=== PATIENT | female | born 1990 | race Caucasian/White ===

== ENCOUNTER 2019-05-08 03:13 | Emergency (ER) | payer SELFPAY ==
[2019-05-08] VITALS (32 sets, daily range): BP systolic 127–157; BP diastolic 54–120; PULSE 55–124; RESP 11–24; TEMP 37.1; O2SAT 91–100; BMI 25.7
--- NOTE | 2019-05-08 03:26 | ED_ITS ---
Entered by Sangeetha Del Valle, acting as scribe for Gaviota Rice HPI - Abdominal Pain General: Chief Complaint: Back Pain/Injury Stated Complaint: POSS KIDNEY INFECTION Time Seen by Provider: 05/08/19 03:22 Source: patient Mode of arrival: ambulatory History of Present Illness: HPI narrative: 28 y/o female presents to the ED with complaint of right sided kidney pain. She reports having blood in her urine last week, but no pain. She was awakened abruptly this AM, with severe pain. Pt states she has a hx of kidney stones and this pain feels exactly like past episodes. MD elicited complaint: flank pain (Right) Pertinent past history: kidney stones Onset (ago): hour(s) Pain Consistency: constant Location: R flank Severity: severe Pain scale (0-10): 10 Quality: stabbing Exacerbating factors: movement Relieving factors: nothing Associated Symptoms: Reports other (see HPI); Denies chills, fever(s) and syncope Review of Systems Const: Denies: fever, chills, body aches, fatigue, malaise or diaphoresis Eyes: Denies: change in vision or blurry vision ENMT: Denies: throat pain, painful swallowing, hoarseness, ear pain, ear discharge, Change in hearing or nasal discharge Card: Denies: chest pain, palpitations, irregular heart rhythm, syncope, pre- syncope, shortness of breath on exertion or shortness of breath when lying down Resp: Denies: shortness of breath, productive cough, non-productive cough, wheezing, coughing up blood or chest congestion GI: Reports: other (see HPI) : Reports: other (See HPI) Musc: Denies: neck pain, extremity pain, extremity swelling, joint pain, joint swelling, joint warmth or joint stiffness Skin/Breast: Denies: rash, skin tenderness or yellow skin Neuro: Denies: headache, numbness in extremities, weakness in extremities, changes in sensation, lack of coordination, difficulty walking, dizziness, vertigo or confusion Endo: Denies: excessive thirst, tired all the time, cold intolerance, excessive sweating, flushing or hot flashes Thanh/Lymph: Denies: easy bruising, easy bleeding, petechiae or enlarged lymph nodes All/Imm: Denies: hives, throat swelling, tongue swelling, facial swelling or acute wheezing PFSH ED PFSH: Statuses (acute, chronic, etc) shown below reflect problem list status as previously entered and may not be historically accurate Medical History (Updated 05/08/19 @ 06:07 by Gaviota Rice) Kidney stones (Acute) Social History Smoking and tobacco status: current every day smoker Physical Exam Const: COMMON NORMALS: oriented x3, healthy appearing and well nourished EXAM LIMITATIONS: no altered mental status GENERAL APPEARANCE: cooperative, well kempt and well developed ORIENTATION/CONSCIOUSNESS: Yes awake HENMT: COMMON NORMALS: normocephalic, head/scalp atraumatic, hearing grossly normal bilaterally, external ears normal, EAC's normal, external nose normal and moist oral mucous membranes HEAD & SCALP: normal to inspection, normocephalic and atraumatic FACE & SINUS: normal facial exam and face symmetric NOSE: external nose normal and nares normal EXTERNAL EAR: Yes external ears normal EXTERNAL AUDITORY CANAL: EAC's normal MOUTH: oral and palatal mucosa normal and tongue normal Eye: COMMON NORMALS: PERRL, EOMs intact bilaterally, conjunctivae normal and no scleral icterus GENERAL EYE: normal appearance of both eyes and normal light reflex CONJUNCTIVA: Yes conjunctivae normal SCLERA: sclerae normal CORNEA: Yes corneas normal PUPIL: Yes PERRL DIRECT OPHTHALMOSCOPY: Yes normal light reflex Neck/C-Spine: COMMON NORMALS: full ROM, no lymphadenopathy, supple, no meningeal signs and no JVD GENERAL: Yes normal visual inspection and Yes trachea midline CERVICAL SPINE: Yes cervical ROM normal Chest: COMMONS NORMALS: inspection of chest normal and palpation of chest normal Resp: COMMON NORMALS: normal respiratory effort, no retractions, no use of accessory muscles and clear to auscultation bilaterally EFFORT & INSPECTION: Yes able to speak in complete sentences AUSCULTATION: clear to auscultation bilaterally Cardio: COMMON NORMALS: no JVD, regular rate, regular rhythm, S1 normal heart sound, S2 normal heart sound, no gallops, no clicks, no murmurs and no rub JUGULAR VENOUS DISTENTION: no JVD RATE: regular rate RHYTHM: regular rhythm HEART SOUNDS: S1 normal and S2 normal GI: COMMON NORMALS: soft to palpation, non-tender, no hepatosplenomegaly and no masses INSPECTION: Yes normal to inspection PALPATION: Yes soft and Yes no hepatosplenomegaly Extremity: COMMON NORMALS: normal to inspection, full ROM, normal capillary refill, no joint enlargement, no clubbing, cyanosis or edema and no calf tenderness Neuro: COMMON NORMALS: oriented x3, CN's II-XII intact bilaterally, moves all extremities, no focal motor deficits and no sensory deficits noted MENINGEAL SIGNS: Yes no meningeal signs Psych: COMMON NORMALS: mental status grossly normal, cooperative, affect normal, speech normal and activity/motor behavior normal APPEARANCE: Yes well kempt SPEECH: Yes normal speech Skin: COMMON NORMALS: no rashes or lesions noted, skin turgor normal, no jaundice, no petechiae and no mottling GENERAL SKIN EXAM: no rashes or lesions noted and turgor normal Course Vital Signs: Vital signs: Vital Signs Temperature 98.8 F 05/08/19 03:27 Pulse Rate 77 05/08/19 06:30 Respiratory Rate 16 05/08/19 06:30 Blood Pressure 154/78 05/08/19 06:30 Pulse Oximetry 98 05/08/19 06:30 MDM - Abdominal Pain MDM Narrative: Medical decision making narrative: Kyara comes in and has significant kidney stones on her right side. Please see the CT report for details. At this time her pain is controlled and she like to go home. I have reviewed the case in full with Dr. Roy and he is agreeable to see the patient in his clinic in the next 1 to 2 days and she is aware that if her symptoms get worse she may have to have intervention. She has no questions or concerns I see no sign of infection, vomiting or anything that would preclude her from therapy at home. She does agree to return should her symptoms change or worsen. Lab Data: Labs: Lab Results 05/08/19 05/08/19 05/08/19 Range/Units 03:37 03:37 03:55 WBC 10.3 H (4.0-10.0) 10^3/ uL RBC 4.59 (4.1-5.3) 10^6/u L Hgb 10.8 L (11.5-15.3) g/dL Hct 35.7 L (37.0-47.0) % MCV 77.8 L (81-99) fL MCH 23.5 L (28.0-34.0) pg MCHC 30.3 (30.0-36.0) g/dL RDW 15.8 H (12.1-15.1) % Plt Count 461 H (130-400) 10^3/c mm MPV 9.4 (7.4-10.4) fL Neut % (Auto) 56.9 % Lymph % (Auto) 28.5 % [place] % (Auto) 10.1 % Eos % (Auto) 3.4 % Baso % (Auto) 0.8 % Neut # (Auto) 5.8 (1.8-7.7) 10^3/u L Lymph # (Auto) 2.9 (0.8-4.8) 10^3/u L [place] # (Auto) 1.0 H (0.2-0.9) 10^3/u L Eos # (Auto) 0.4 (0.0-0.8) 10^3/u L Baso # (Auto) 0.1 (0.0-0.1) 10^3/u L Nucleated RBC % (a uto) 0 % Nucleated RBCs # 0.0 /100WBC Sodium 137 (136-145) mmol/L Potassium 3.9 (3.5-5.1) mmol/L Chloride 101 (98-107) mmol/L Carbon Dioxide 26 (22-29) mmol/L Anion Gap 13.9 (5-19) BUN 19 (6-20) mg/dL Creatinine 0.8 (0.5-0.9) mg/dL GFR Calculation 84.8 L (90-130) mL/min Glucose 92 (74-109) mg/dL Calcium 9.5 (8.6-10.0) mg/Dl Total Bilirubin 0.3 (0.15-1.2) mg/dL AST 14 (0-32) U/L ALT 10 (0-33) U/L Alkaline Phosphata se 57 (35-105) IU/L Total Protein 7.3 (6.6-8.7) g/dL Albumin 4.3 (3.5-5.2) g/dL Globulin 3.0 (1.3-4.6) g/dL HCG, Qual Negative (Negative) Urine Color (Yellow) Urine Appearance (CLEAR) Urine pH (5-7) Ur Specific Gravit y (1.005-1.030) Urine Protein (Negative) Urine Glucose (UA) (Normal) Urine Ketones (Negative) Urine Occult Blood (Negative) Urine Nitrate (Negative) Urine Bilirubin (NEGATIVE) Urine Urobilinogen (Negative) mg/dL Ur Leukocyte Steffany ase (Negative) Urine RBC (0-2) /hpf Urine WBC (0-5) /hpf Ur Squamous Epith Cells (0-5) Urine Bacteria (NONE) 05/08/19 Range/Units 03:55 WBC (4.0-10.0) 10^3/ uL RBC (4.1-5.3) 10^6/u L Hgb (11.5-15.3) g/dL Hct (37.0-47.0) % MCV (81-99) fL MCH (28.0-34.0) pg MCHC (30.0-36.0) g/dL RDW (12.1-15.1) % Plt Count (130-400) 10^3/c mm MPV (7.4-10.4) fL Neut % (Auto) % Lymph % (Auto) % [place] % (Auto) % Eos % (Auto) % Baso % (Auto) % Neut # (Auto) (1.8-7.7) 10^3/u L Lymph # (Auto) (0.8-4.8) 10^3/u L [place] # (Auto) (0.2-0.9) 10^3/u L Eos # (Auto) (0.0-0.8) 10^3/u L Baso # (Auto) (0.0-0.1) 10^3/u L Nucleated RBC % (a uto) % Nucleated RBCs # /100WBC Sodium (136-145) mmol/L Potassium (3.5-5.1) mmol/L Chloride (98-107) mmol/L Carbon Dioxide (22-29) mmol/L Anion Gap (5-19) BUN (6-20) mg/dL Creatinine (0.5-0.9) mg/dL GFR Calculation (90-130) mL/min Glucose (74-109) mg/dL Calcium (8.6-10.0) mg/Dl Total Bilirubin (0.15-1.2) mg/dL AST (0-32) U/L ALT (0-33) U/L Alkaline Phosphata se (35-105) IU/L Total Protein (6.6-8.7) g/dL Albumin (3.5-5.2) g/dL Globulin (1.3-4.6) g/dL HCG, Qual (Negative) Urine Color Yellow (Yellow) Urine Appearance Clear (CLEAR) Urine pH 5 (5-7) Ur Specific Gravit y 1.020 (1.005-1.030) Urine Protein Neg (Negative) Urine Glucose (UA) Norm (Normal) Urine Ketones Negative (Negative) Urine Occult Blood 3+ H (Negative) Urine Nitrate Negative (Negative) Urine Bilirubin Neg (NEGATIVE) Urine Urobilinogen Norm (Negative) mg/dL Ur Leukocyte Steffany ase Negative (Negative) Urine RBC >100 H (0-2) /hpf Urine WBC 0-4 H (0-5) /hpf Ur Squamous Epith Cells 0-4 H (0-5) Urine Bacteria 1+ H (NONE) Discharge Plan Discharge Patient Disposition: Home, Self-Care Clinical Impression: Kidney stones Condition: Stable Prescriptions: New Percocet 5-325 mg tablet 1 tab PO Q8H Qty: 20 RF: 0 Zofran 4 mg tablet 4 mg PO DAILY PRN (Reason: nausea and vomiting) 5 Days RF: 0 Cipro 500 mg tablet 500 mg PO BID Qty: 20 RF: 0 Flomax 0.4 mg capsule 0.4 mg PO DAILY Qty: 14 RF: 0 Discharge Orders: Discharge Order (Routine); Ordered 05/08/19 Ordered By: Gaviota Rice Referrals: Ethan Roy MD [Physician] - Discharge Diet: Advance as tolerated Discharge Activity: Resume usual activity Patient Instructions: Kidney Stones (ED) Activity Restrictions/Additional Instructions: Please return to the ER immediately for any of the signs or symptoms listed on your discharge instruction sheets, worsening/changing of your symptoms, you are not getting better as quickly as expected, or for ANY other cause or concerns. Discharge Date/Time: 05/08/19 06:31 Coding Level of Care Code ED Acting Section Chief for Chg Fwd Exam Problem Focused The documentation recorded by the Eligio palmer Ashley, accurately reflects the service I personally performed and the decisions made by Krystal torrez Eli N May 08, 2019 03:13
--- NOTE | 2019-05-08 03:28 | CTR_ITS ---
PROCEDURE INFORMATION: Exam: CT Abdomen And Pelvis Without Contrast Exam date and time: 05/08/2019 3:29 AM Age: 28 years old Clinical indication: Other: Gross hematuria; Abdominal pain; Flank; Right; Additional info: Flank/abdominal pain TECHNIQUE: Imaging protocol: Computed tomography of the abdomen and pelvis without contrast. Total DLP: 938.49 mGy-cm Radiation optimization: All CT scans at this facility use at least one of these dose optimization techniques: automated exposure control; mA and/or kV adjustment per patient size (includes targeted exams where dose is matched to clinical indication); or iterative reconstruction. COMPARISON: CT abdomen pelvis w con* [id number] 10/04/2014 11:30 AM FINDINGS: Lungs: The lung bases are clear. Liver: Unremarkable. Gallbladder and bile ducts: No definite gallbladder abnormality by CT. No biliary tree dilation. Pancreas: Unremarkable. Spleen: Unremarkable. Adrenals: Unremarkable. Kidneys and ureters: 2 or 3 right intrarenal calculi. Moderate to severe right hydronephrosis and hydroureter. There appear to be three adjacent 4-5 mm distal right ureteral calculi, about 1-2 cm from the UVJ. There is an additional 5 mm distal right ureteral calculus about 3 cm more proximal. Several small left intrarenal calculi. The left kidney otherwise appears essentially unremarkable. Stomach and bowel: There are no CT findings to strongly suggest diverticulitis. Appendix: The appendix is visualized and appears normal. Intraperitoneal space: No free air, ascites, or bowel distention. Vasculature: No evidence for abdominal aortic aneurysm. Lymph nodes: No retroperitoneal adenopathy. Bladder: Possibly some mild diffuse urinary bladder wall thickening. While nonspecific, this could indicate evidence for cystitis. Please correlate clinically. Reproductive: Small amount of cul-de-sac fluid. No definite abnormal ovarian/adnexal cyst or mass by CT. Bones/joints: No significant acute finding. Soft tissues: No significant acute finding. CT/CT kidney stone [id number] IMPRESSION: 1. Multiple distal right ureteral calculi, see above details. 2. Moderate to severe right hydronephrosis and hydroureter. 3. Bilateral intrarenal calculi. 4. Possible mild urinary bladder wall thickening, see above. 5. Normal appendix. 6. Other findings discussed above. Radiation Dose CTDIVOL = (mGy): DLP = 938.49 (mGy-cm)
[2019-05-08] MEDS: ondansetron 2 mg/ML SDV 2 mL 4 MG IVP (03:45)
[2019-05-08] MEDS: HYDROmorphone 1 mg/mL INJ 1 mL IVP (03:45)
[2019-05-08] MEDS: sodium chloride 0.9% 1,000 ML 100 ML IV (03:45)
[2019-05-08 03:49] LABS: Basophils # 0.1 10^3/uL (0.0-0.1); Basophils % 0.8 %; Eosinophils # 0.4 10^3/uL (0.0-0.8); Eosinophils % 3.4 %; Hematocrit 35.7 % (37.0-47.0); Hemoglobin 10.8 g/dL (11.5-15.3); Lymphocytes # 2.9 10^3/uL (0.8-4.8); Lymphocytes % 28.5 %; Mean Corpuscular HGB Conc 30.3 g/dL (30.0-36.0); Mean Corpuscular Hemoglobin 23.5 pg (28.0-34.0); Mean Corpuscular Volume 77.8 fL (81-99); Mean Platelet Volume 9.4 fL (7.4-10.4); Monocytes % 10.1 %; Neutrophils # 5.8 10^3/uL (1.8-7.7); Neutrophils % 56.9 %; Nucleated Red Blood Cells % 0 %; Platelet Count 461 10^3/cmm (130-400); Red Blood Count 4.59 10^6/uL (4.1-5.3); Red Cell Distribution Width 15.8 % (12.1-15.1); White Blood Count 10.3 10^3/uL (4.0-10.0)
[2019-05-08 03:58] LABS: Alanine Aminotransferase 10 U/L (0-33); Albumin Level 4.3 g/dL (3.5-5.2); Alkaline Phosphatase 57 IU/L (35-105); Anion Gap 13.9 (5-19); Aspartate Amino Transferase 14 U/L (0-32); Blood Urea Nitrogen 19 mg/dL (6-20); Calcium 9.5 mg/Dl (8.6-10.0); Carbon Dioxide 26 mmol/L (22-29); Chloride 101 mmol/L (98-107); Glomerular Filtration Rate 84.8 mL/min (90-130); Glucose 92 mg/dL (74-109); Potassium 3.9 mmol/L (3.5-5.1); Sodium 137 mmol/L (136-145); Total Bilirubin 0.3 mg/dL (0.15-1.2); Total Protein 7.3 g/dL (6.6-8.7)
[2019-05-08 04:14] LABS: HCG Qualitative Urine. Negative (Negative)
[2019-05-08 05:12] LABS: Bilirubin Urine Neg (NEGATIVE); Blood Urine 3+ (Negative); Glucose Urine UA Norm (Normal); Ketones Urine Negative (Negative); Leukocyte Esterase Urine Negative (Negative); Nitrate Urine Negative (Negative); Protein Urine Neg (Negative); Urine Appearance Clear (CLEAR); Urine Color Yellow (Yellow); Urobilinogen Urine Norm (Negative); pH Urine 5 (5-7)
[2019-05-08 05:13] LABS: Add Urine Culture? Yes; Bacteria Urine 1+; RBC Urine >100 /hpf (0-2); Squamous Epithelial Cell Urine 0-4 (0-5); WBC Urine 0-4 /hpf (0-5)
[2019-05-08] MEDS: ketorolac 30 mg/mL INJ 15 MG IVP (06:04)
--- NOTE | 2019-05-08 11:55 | DCPLANNER ---
manager safe had message to schedule a follow up appointment for patient with Dr. Roy. manager safe called the office of Dr. Roy, spoke with Monserrat, gave clinic patients information, was told that patients information would be printed and reviewed. Clinic will call patient with appointment information. manager safe will call for appointment information.
--- NOTE | 2019-05-14 15:08 | DCPLANNER ---
Paulina from Dr. Hua office called rn case manager hospice, stating that a follow up appointment had been scheduled for patient, but is cancelled. Clinic has not been able to reach patient to schedule appointment.
== END 2019-05-08 06:31 | disposition home or self-care (01) ==
PROVIDERS: Emergency Provider Emergency Medicine
DX: N20.0 Calculus of kidney (principal); F17.210 Nicotine dependence, cigarettes, uncomplicated; Z87.442 Personal history of urinary calculi
CPT/HCPCS: 36415; 74176; 80053; 81001; 81025; 85025; 87077; 87086; 87186; 96360; 96374; 99283; J1170; J1885; J2405; J7030

== ENCOUNTER 2019-08-06 14:07 | Emergency (ER) | payer MEDICAID, SELFPAY ==
[2019-08-06] VITALS (8 sets, daily range): BP systolic 111–146; BP diastolic 52–90; PULSE 59–96; RESP 16–20; TEMP 36.7; O2SAT 98–100; BMI 25.0
--- NOTE | 2019-08-06 14:20 | ED_ITS ---
HPI - Back Pain/Injury General: Chief Complaint: Back Pain/Injury Stated Complaint: back and side pain Time Seen by Provider: 08/06/19 14:18 History of Present Illness: HPI Narrative: 28-year-old female presents to the emergency room with complaint of right flank pain that began this morning. She first got count of a pressure sensation and then as the morning progressed progressed it actually worsened significantly now she has severe pain radiating down from the right flank into the groin. She has had renal stones in the past not followed up with Dr. Roy but it is been several years she had passed some on her own she is been having cramping and nausea with these but no vomiting she is not noted any hematuria she recently started on a new control has not had a period since starting and she is unsure if she might not be . Associated symptoms: Reports urinary urgency; Deny abdominal pain, chills, dysuria, fatigue, fever(s), nausea or vomiting Review of Systems Const: Denies: fever, chills, body aches, change in appetite, fatigue or malaise ENMT: Denies: throat pain, ear pain, nasal discharge or nasal congestion Card: Denies: chest pain, edema, shortness of breath on exertion or shortness of breath when lying down Resp: Denies: shortness of breath, productive cough or non-productive cough GI: Denies: abdominal pain, nausea, vomiting, vomiting blood, coffee grounds in vomit, diarrhea, constipation, bloating, blood in stool or black tarry stool : Reports: flank pain, difficulty urinating, urinary frequency and urinary urgency; Denies: painful urination Skin/Breast: Denies: rash or itching [facility] ED PFSH: Medical History (Updated 08/06/19 @ 17:02 by Ethan Roy MD) Kidney stones Obstructive pyelonephritis Surgical History (Updated 08/06/19 @ 17:02 by Ethan Roy MD) History of ureter stent Family History (Updated 08/06/19 @ 17:04 by Ethan Roy MD) Other Cancer Social History (Updated 08/06/19 @ 17:03 by Ethan Roy MD) Smoking and tobacco status: former smoker Female Reproductive History: Date of last menstrual period: 07/09/19 Physical Exam Const: COMMON NORMALS: no apparent distress GENERAL APPEARANCE: cooperative and comfortable ORIENTATION/CONSCIOUSNESS: Yes awake, Yes oriented to person, Yes oriented to place and Yes oriented to time HENMT: COMMON NORMALS: normocephalic, head/scalp atraumatic, hearing grossly normal bilaterally, external ears normal, EAC's normal, TM's normal bilaterally, nasal mucous membranes and turbinates normal, moist oral mucous membranes and oropharynx normal HEAD & SCALP: normocephalic and atraumatic NOSE: nasal mucous membranes and turbinates normal EXTERNAL EAR: Yes external ears normal EXTERNAL AUDITORY CANAL: EAC's normal TYMPANIC MEMBRANE: TM's normal bilaterally Eye: COMMON NORMALS: PERRL, EOMs intact bilaterally, conjunctivae normal and no scleral icterus CONJUNCTIVA: Yes conjunctivae normal PUPIL: Yes PERRL Neck/C-Spine: COMMON NORMALS: full ROM, no lymphadenopathy, supple and no JVD Lymph: LYMPHATIC: no lymphadenopathy noted and no lymphedema noted Resp: COMMON NORMALS: normal respiratory effort, no retractions, no use of accessory muscles and clear to auscultation bilaterally AUSCULTATION: clear to auscultation bilaterally Cardio: COMMON NORMALS: no JVD, regular rate, regular rhythm and no murmurs RATE: regular rate RHYTHM: regular rhythm GI: COMMON NORMALS: soft to palpation and no hepatosplenomegaly AUSCULTATION: Yes normoactive bowel sounds PALPATION: Yes soft, No tender, No guarding and Yes no hepatosplenomegaly : BLADDER/KIDNEY EXAM: Yes CVA tenderness Back/Pelvis: GENERAL BACK: Yes CVA tenderness CVA tenderness: right Extremity: COMMON NORMALS: normal to inspection, normal capillary refill, no clubbing, cyanosis or edema, no calf tenderness and no pedal edema Neuro: SENSORIUM/ORIENTATION: Yes oriented to person, Yes oriented to place and Yes oriented to time Skin: COMMON NORMALS: no rashes or lesions noted GENERAL SKIN EXAM: no rash es or lesions noted Course Vital Signs: Vital signs: Vital Signs Temperature 98.0 F 08/06/19 14:12 Pulse Rate 59 L 08/06/19 16:29 Respiratory Rate 17 08/06/19 17:04 Blood Pressure 114/79 08/06/19 16:29 Pulse Oximetry 98 08/06/19 17:04 MDM - Back Pain/Injury MDM Narrative: Medical decision making narrative: Discussed Dr. Roy he ca me and seen the patient in the emergency room. Patient had talked about having seen Dr. Roy in the past and there was a CT done from April but evidently she had not seen Dr. Roy for some time. She did pass 1 of the 3 stones with [place] tube in place. Given the length of time that these have been in place she will likely need assistance with getting the past Dr. Roy seen her and wanted to do a stent on her tomorrow she will go home for tonight with pain medications and Flomax she is to be n.p.o. after midnight and to be at outpatient surgery at 6 AM Lab Data: Labs: Lab Results 08/06/19 08/06/19 08/06/19 Range/Units 14:21 14:21 14:21 WBC 10.2 H (4.0-10.0) 10^3/ uL RBC 4.41 (4.1-5.3) 10^6/u L Hgb 10.2 L (11.5-15.3) g/dL Hct 35.4 L (37.0-47.0) % MCV 80.3 L (81-99) fL MCH 23.1 L (28.0-34.0) pg MCHC 28.8 L (30.0-36.0) g/dL RDW 15.0 (12.1-15.1) % Plt Count 483 H (130-400) 10^3/c mm MPV 9.6 (7.4-10.4) fL Neut % (Auto) 61.2 % Lymph % (Auto) 26.3 % [place] % (Auto) 8.8 % Eos % (Auto) 2.5 % Baso % (Auto) 0.9 % Neut # (Auto) 6.2 (1.8-7.7) 10^3/u L Lymph # (Auto) 2.7 (0.8-4.8) 10^3/u L [place] # (Auto) 0.9 (0.2-0.9) 10^3/u L Eos # (Auto) 0.3 (0.0-0.8) 10^3/u L Baso # (Auto) 0.1 (0.0-0.1) 10^3/u L Nucleated RBC % (a uto) 0 % Nucleated RBCs # 0.0 /100WBC Sodium 140 (136-145) mmol/L Potassium 3.6 (3.5-5.1) mmol/L Chloride 104 (98-107) mmol/L Carbon Dioxide 25 (22-29) mmol/L Anion Gap 14.6 (5-19) BUN 11 (6-20) mg/dL Creatinine 0.8 (0.5-0.9) mg/dL GFR Calculation 84.8 L (90-130) mL/min Glucose 90 (65-115) mg/dL Calculated Osmolal ity 286 (285-295) mOsm/k g Calcium 9.0 (8.5-10.5) mg/dL HCG, Qual Negative (Negative) Urine Color (Yellow) Urine Appearance (CLEAR) Urine pH (5-7) Ur Specific Gravit y (1.005-1.030) Urine Protein (Negative) Urine Glucose (UA) (Normal) Urine Ketones (Negative) Urine Blood (Negative) Urine Nitrate (Negative) Urine Bilirubin (NEGATIVE) Prot Sulfosalicyli c Acd (Negative) Urine Urobilinogen (Negative) mg/dL Ur Leukocyte Steffany ase (Negative) 08/06/19 Range/Units 14:21 WBC (4.0-10.0) 10^3/ uL RBC (4.1-5.3) 10^6/u L Hgb (11.5-15.3) g/dL Hct (37.0-47.0) % MCV (81-99) fL MCH (28.0-34.0) pg MCHC (30.0-36.0) g/dL RDW (12.1-15.1) % Plt Count (130-400) 10^3/c mm MPV (7.4-10.4) fL Neut % (Auto) % Lymph % (Auto) % [place] % (Auto) % Eos % (Auto) % Baso % (Auto) % Neut # (Auto) (1.8-7.7) 10^3/u L Lymph # (Auto) (0.8-4.8) 10^3/u L [place] # (Auto) (0.2-0.9) 10^3/u L Eos # (Auto) (0.0-0.8) 10^3/u L Baso # (Auto) (0.0-0.1) 10^3/u L Nucleated RBC % (a uto) % Nucleated RBCs # /100WBC Sodium (136-145) mmol/L Potassium (3.5-5.1) mmol/L Chloride (98-107) mmol/L Carbon Dioxide (22-29) mmol/L Anion Gap (5-19) BUN (6-20) mg/dL Creatinine (0.5-0.9) mg/dL GFR Calculation (90-130) mL/min Glucose (65-115) mg/dL Calculated Osmolal ity (285-295) mOsm/k g Calcium (8.5-10.5) mg/dL HCG, Qual (Negative) Urine Color Yellow (Yellow) Urine Appearance Hazy A (CLEAR) Urine pH 8 H (5-7) Ur Specific Gravit y 1.005 (1.005-1.030) Urine Protein Neg (Negative) Urine Glucose (UA) Norm (Normal) Urine Ketones Negative (Negative) Urine Blood Neg (Negative) Urine Nitrate Negative (Negative) Urine Bilirubin Neg (NEGATIVE) Prot Sulfosalicyli c Acd Negative (Negative) Urine Urobilinogen Norm (Negative) mg/dL Ur Leukocyte Steffany ase Negative (Negative) Discharge Plan Discharge Patient Disposition: Home, Self-Care Clinical Impression: Kidney stones Condition: Stable Prescriptions: New hydrocodone-acetaminophen 5-325 mg tablet 1 tab PO Q6H PRN (Reason: pain) Qty: 20 RF: 0 Flomax 0.4 mg capsule 0.4 mg PO DAILY Qty: 7 RF: 0 No Action Lutera (28) 0.1-20 mg-mcg Tablet 1 tab PO DAILY RF: 0 Discharge Orders: Discharge Order (Routine); Ordered 08/06/19 Ordered By: Brian Rocha Referrals: Ethan Roy MD [Physician] - (Follow-up for ureteral stones) Discharge Diet: Usual diet Discharge Activity: Increase activity as tolerated Activity Restrictions/Additional Instructions: Follow-up with Dr. Roy tomorrow as planned. N.p.o. after midnight Coding Level of Care Code ED Nursing Education Specialist for Chg Fwd Exam Comprehensive
--- NOTE | 2019-08-06 14:23 | XR_ITS ---
WS: [id number] ABDOMEN KUB CLINICAL INFORMATION: Renal/ureteral calculi. COMPARISON: October 06, [address] May 08, 2019 FINDINGS: A few subcentimeter right renal parenchymal calculi. No visualized left renal parenchymal calculi. Pe lvic phleboliths. No definite visualized ureteral calculi. Normal bowel gas pattern. Mild lumbar curv e. XR/XR KUB portable [id number] Impression: 1. No definite visualized ureteral calculi. Pelvic phleboliths. 2. A few subcentimeter right renal parenchymal calculi.
[2019-08-06] MEDS: morphine 4 mg/mL SDV 1 mL IVP ×2 (14:32→17:04)
[2019-08-06] MEDS: ondansetron 2 mg/ML SDV 2 mL 4 MG IVP (14:32)
[2019-08-06 14:46] LABS: Add Urine Microscopic? NO
[2019-08-06 14:47] LABS: Basophils # 0.1 10^3/uL (0.0-0.1); Basophils % 0.9 %; Eosinophils # 0.3 10^3/uL (0.0-0.8); Eosinophils % 2.5 %; Hematocrit 35.4 % (37.0-47.0); Hemoglobin 10.2 g/dL (11.5-15.3); Lymphocytes # 2.7 10^3/uL (0.8-4.8); Lymphocytes % 26.3 %; Mean Corpuscular HGB Conc 28.8 g/dL (30.0-36.0); Mean Corpuscular Hemoglobin 23.1 pg (28.0-34.0); Mean Corpuscular Volume 80.3 fL (81-99); Mean Platelet Volume 9.6 fL (7.4-10.4); Monocytes # 0.9 10^3/uL (0.2-0.9); Monocytes % 8.8 %; Neutrophils # 6.2 10^3/uL (1.8-7.7); Neutrophils % 61.2 %; Nucleated Red Blood Cells % 0 %; Platelet Count 483 10^3/cmm (130-400); Red Blood Count 4.41 10^6/uL (4.1-5.3); White Blood Count 10.2 10^3/uL (4.0-10.0)
[2019-08-06 14:51] LABS: Urine Appearance Hazy (CLEAR); Urine Color Yellow (Yellow)
[2019-08-06 14:52] LABS: Bilirubin Urine Neg (NEGATIVE); Blood Urine Neg (Negative); Glucose Urine UA Norm (Normal); Ketones Urine Negative (Negative); Leukocyte Esterase Urine Negative (Negative); Nitrate Urine Negative (Negative); Protein Urine Neg (Negative); Specific Gravity, Urine 1.005 (1.005-1.030); Sulfosalicylic Acid Urine Negative (Negative); Urobilinogen Urine Norm (Negative); pH Urine 8 (5-7)
[2019-08-06 15:00] LABS: HCG Qualitative Urine. Negative (Negative)
[2019-08-06 15:18] LABS: Anion Gap 14.6 (5-19); Blood Urea Nitrogen 11 mg/dL (6-20); Carbon Dioxide 25 mmol/L (22-29); Chloride 104 mmol/L (98-107); Glomerular Filtration Rate 84.8 mL/min (90-130); Glucose 90 mg/dL (65-115); Osmolality Calculated 286 mOsm/kg (285-295); Potassium 3.6 mmol/L (3.5-5.1); Sodium 140 mmol/L (136-145)
--- NOTE | 2019-08-06 15:37 | CT_ITS ---
WS: [id number] CT ABDOMEN PELVIS TECHNIQUE: Noncontrast CT of the abdomen and pelvis with coronal and sagittal reformatted images. CLINICAL INFORMATION: R flank pain COMPARISON: CT May 08, 2019 DLP: 974.[address] scans at [facility] use at least one of these dose optimization techniques: automat ed exposure control; mA and/or kV adjustment per patient size (includes targeted exams where dose is matched to clinical indication); or iterative reconstruction. FINDINGS: Moderate right hydronephrosis is unchanged. Moderate right ureterectasis is unchanged. Cluster of adj acent calculi just proximal to the UVJ are unchanged measuring 4 to 5 mm. Previously described more p roximal ureteral calculus no longer visualized. Tiny subcentimeter calyceal tip calculi are unchanged. No hydronephrosis left kidney. Noncontrast lacey er and gallbladder are normal. Noncontrast spleen is normal. Normal GE junction. Normal caliber abdom inal aorta. Sigmoid diverticulosis. Lung bases are well aerated. No other significant interval changes. IMPRESSIO N: 1. Moderate right hydronephrosis with ureterectasis is unchanged from previous. 2. Obstructing cluster of calculi distal right ureter just proximal to the UVJ measuring 3 to 4 mm. 3. Previously described more proximal 5mm ureteral calculus no longer visualized. 4. Bilateral subcentimeter calyceal tip calculi unchanged. 5. Normal appendix. Notified Brian Rocha DO at 08/06/2019 4:06 PM.
--- NOTE | 2019-08-06 15:58 | PC.NURSE ---
Pt returned from radiology
--- NOTE | 2019-08-07 05:50 | SC_ITS ---
WS: [id number] INTRAOPERATIVE TECHNIQUE: 2 Spot fluoroscopic images for intraoperative purposes. FLUOROSCOPY TIME: 83.8 seconds seconds CLINICAL INFORMATION: Right distal ureteral stone, ureteroscopy planned COMPARISON: None. FINDINGS: Partially visualized right double-J ureteral stent
--- NOTE | 2019-08-07 06:31 | W.PM.OPSUD ---
Surgery/Procedure H&P Update DATE OF PROCEDURE: August 07, 2019 DATE H&P PERFORMED: 08/06/19 H&P UPDATE INFORMATION: I have reviewed H&P completed within last 30 days, I have examined patient prior to procedure and No changes to prior documentation PREOP DIAGNOSIS: Refractory right distal ureteral stone PLANNED PROCEDURE: Operation Date: 08/07/19 07:20 Proposed Procedures p Cystoscopy(Not Applicable) - Ethan Roy MD
--- NOTE | 2019-08-07 06:31 | PM.OP ---
Operative Report Date of procedure: August 07, 2019 Pre-op Diagnosis: Refractory right distal ureteral stone Post-op diagnosis: same Procedure Done: 1. Cystoscopy, RIGHT ureteroscopy, laser, stent 2. Right retrograde ureteropyelogram Implants: Right ureteral stent Pathology: Stone fragment Surgeon: Manuela Anesthesia: General Estimated blood loss: Minimal Urine output: Not measured Complications: none Condition: stable Disposition: PACU Brief History: Kyara is a 28-year-old white female who in April of this year was diagnosed with high-grade obstructing right distal ureteral stones but failed to follow-up. She presented back to the emergency department yesterday with recurrent pain and progressive hydronephrosis and no significant progression of the stones. Due to the risk related to her right kidney from chronic obstruction she ultimately agreed to proceed with intervention and endoscopy was selected due to the high likelihood of significant simba-stone ureteral edema. Procedure: After urgent evaluation examination and obtaining of informed consent she was taken to the operating suite on 08/07/2019 where general anesthesia was administered without difficulty after appropriate timeout was performed, SCDs confirmed to be functioning, preoperative antibiotics administered, beta-jamil protocol confirmed. Prepped and draped in the usual sterile fashion in dorsolithotomy position pain careful attention to avoiding pressure points. 21 Citizen [place] cystoscope with 30 degree lens was introduced into the urethral meatus and advanced into the bladder under videoscopy. Bladder was systematically examined showed some intramural edema on the right but no other gross abnormality. No stones. An 8 [place] cone-tipped catheter was intubated into the right ureteral orifice for right retrograde ureteropyelogram demonstrating the following: The very distal aspect of the ureter appeared to be normal. Filling defect consistent with stones was identified in the expected position based on prior imaging. Flexible tip guidewire was advanced up the right ureter. The distal ureter was then dilated with a 15 [place] 4 cm balloon. The wire was secured to the drapes as a safety wire. Offset semirigid ureteroscope was then advanced up the right ureter next to the safety wire and the cluster of stones were identified with some of the more distal aspect impacted. They were then fragmented with a 375 ?m holmium laser fiber and the fragments removed without difficulty with combination of grasping forceps and parachute basket. Final inspection revealed no residual fragments and the ureter showed significant edema at the level of the impaction and for that reason it was decided to leave a stent in. A 7 [place] by 26 cm double-pigtail stent was advanced over the guidewire through the cystoscope into appropriate position as confirmed via fluoroscopy and cystoscopy. No string. Tolerated procedure well without complications and was awakened in the operating room and returned to the recovery room in stable condition. PLANS: 1. Maintain stent until removed in clinic in 2 weeks to allow adequate healing of the impaction site.
--- NOTE | 2019-08-07 16:09 | DCPLANNER ---
Patient followed up with Dr. Roy on 08.07.19 and has a follow up appointment scheduled with clinic.
== END 2019-08-06 17:43 | disposition home or self-care (01) ==
PROVIDERS: Emergency Medicine; Emergency Provider Family Medicine
DX: N20.0 Calculus of kidney (principal); Z87.442 Personal history of urinary calculi; Z87.891 Personal history of nicotine dependence
CPT/HCPCS: 12345; 74018; 74176; 80048; 81003; 81025; 85025; 96374; 96375; 96376; 99283; 99284; J2270; J2405

== ENCOUNTER 2019-08-07 05:48 | Day surgery (SDC) | payer MEDICAID, SELFPAY ==
--- NOTE | 2019-08-07 | SCC_ITS ---
Procedure Done: 1. Cystoscopy, RIGHT ureteroscopy, laser, stent 2. Right retrograde ureteropyelogram 83.8 seconds of fluoroscopic guidance, for a cumulative dose of 13.90 mGy, was provided to Dr. Roy by the radiology department. C-arm images of the abdomen were saved for the patient's permanent record. [facility]
--- NOTE | 2019-08-07 | SC_ITS ---
NOTE: Report was unsigned for reason: Order was edited. Original Signature date and time was: 08/07/19 @ 0831 INTRAOPERATIVE TECHNIQUE: 2 Spot fluoroscopic images for intraoperative purposes. FLUOROSCOPY TIME: 83.8 seconds seconds CLINICAL INFORMATION: Right distal ureteral stone, ureteroscopy planned COMPARISON: None. FINDINGS: Partially visualized right double-J ureteral stent Dictated By: Ryan Castillo MD Signed By: Signed Date/Time: DD/ 0831 [email or web address]
[2019-08-07 06:00] VITALS: BMI 25.0
--- NOTE | 2019-08-07 06:29 | ANES.PREANE2 ---
Pre-Anesthetic Assessment Pre-Anesthetic Assessment: Height/Weight: Height 1.65 m Weight 68.039 kg Preop Diagnosis: Refractory right distal ureteral stone Proposed Procedure: Operation Date: 08/07/19 07:00 Proposed Procedures p Cystoscopy(Right) - Ethan Roy MD Last intake: Intake Last Liquid Date 08/06/19 Last Liquid Time 20:30 Last Solid Date 08/06/19 Last Solid Time 20:30 Social: Social History: Tobacco (quit) and No alcohol Exam: Pre-Anes Outpt Exam: alert, oriented x 3, clear to auscultation bilaterally and regular rate & rhythm Airway: Submandibular: WNL Cervical ROM: WNL MP: 1 Dentition: False (Upper and lower) History/ROS: No significant history except as noted Pulmonary: Pulmonary: None reported CV/HEM: CV/HEM: None reported : Comments: stones Hepatic: Hepatic: None reported GI: GI: None reported Metabolic: Metabolic: None reported Musc/skel: Musc/skel: None reported Neuropsych: Neuropsych: None reported Anesthetic Plan: ASA status: 2 Anesthesia: Anesthesia Evaluation and General Risk of > 500 ml blood loss (7ml/kg in children): No PFSH Anesthesia PFSH: Medical History Kidney stones Obstructive pyelonephritis Surgical History History of ureter stent Family History Other Cancer Social History Smoking and tobacco status: former smoker Female Reproductive History: Date of last menstrual period: 07/09/19 Data Anesthesia Cardiac Studies: No Data to Display
[2019-08-07] MEDS: sodium chloride 0.9% 1,000 ML 30 ML IV (06:40)
[2019-08-07 06:41] VITALS: BP 128/72; PULSE 65; RESP 16; TEMP 36.4; O2SAT 100
[2019-08-07] MEDS: levofloxacin-dextrose 5 % 500 MG/100 ML PREMIX 100 MG IV (06:48)
[2019-08-07] MEDS: iohexol 300 mg/mL 50 mL Btl (OR ONLY) XX (07:17)
--- NOTE | 2019-08-07 07:54 | P.OP_ITS ---
Operative Report Date of procedure: August 07, 2019 Procedure: Operative Note Signed Patient: Kyara Pike [facility]#: [id number] : 1990Acct#:[id number] Age/Sex: 28 / FADM Date: 08/06/19 Loc: [facility] Clinic/Bed: Encounter Date: 08/07/[address]: Report Number: [id number] Operative Report Date of procedure: August 07, 2019 Pre-op Diagnosis: Refractory right distal ureteral stone Post-op diagnosis: same Procedure Done: 1. Cystoscopy, RIGHT ureteroscopy, laser, stent 2. Right retrograde ureteropyelogram Implants: Right ureteral stent Pathology: Stone fragment Surgeon: Manuela Anesthesia: General Estimated blood loss: Minimal Urine output: Not measured Complications: none Condition: stable Disposition: PACU Brief History: Kyara is a 28-year-old white female who in April of this year was diagnosed with high-grade obstructing right distal ureteral stones but failed to follow-up. She presented back to the emergency department yesterday with recurrent pain and progressive hydronephrosis and no significant progression of the stones. Due to the risk related to her right kidney from chronic obstruction she ultimately agreed to proceed with intervention and endoscopy was selected due to the high likelihood of significant simba-stone ureteral edema. Procedure: After urgent evaluation examination and obtaining of informed consent she was taken to the operating suite on 08/07/2019 where general anesthesia was administered without difficulty after appropriate timeout was performed, SCDs confirmed to be functioning, preoperative antibiotics administered, beta-jamil protocol confirmed. Prepped and draped in the usual sterile fashion in dorsolithotomy position pain careful attention to avoiding pressure points. 21 [place] cystoscope with 30 degree lens was introduced into the urethral meatus and advanced into the bladder under videoscopy. Bladder was systematically examined showed some intramural edema on the right but no other gross abnormality. No stones. An 8 [place] cone-tipped catheter was intubated into the right ureteral orifice for right retrograde ureteropyelogram demonstrating the following: The very distal aspect of the ureter appeared to be normal. Filling defect consistent with stones was identified in the expected position based on prior imaging. Flexible tip guidewire was advanced up the right ureter. The distal ureter was then dilated with a 15 [place] 4 cm balloon. The wire was secured to the drapes as a safety wire. Offset semirigid ureteroscope was then advanced up the right ureter next to the safety wire and the cluster of stones were identified with some of the more distal aspect impacted. They were then fragmented with a 375 ?m holmium laser fiber and the fragments removed without difficulty with combination of grasping forceps and parachute basket. Final inspection revealed no residual fragments and the ureter showed significant edema at the level of the impaction and for that reason it was decided to leave a stent in. A 7 [place] by 26 cm double-pigtail stent was advanced over the guidewire through the cystoscope into appropriate position as confirmed via fluoroscopy and cystoscopy. No string. Tolerated procedure well without complications and was awakened in the operating room and returned to the recovery room in stable condition. PLANS: 1. Maintain stent until removed in clinic in 2 weeks to allow adequate healing of the impaction site.
[2019-08-07 07:55] VITALS: BP 119/80; PULSE 97; RESP 16; TEMP 36.7; O2SAT 100
[2019-08-07 08:00] VITALS: BP 118/66; PULSE 80; RESP 18; O2SAT 100
[2019-08-07 08:06] VITALS: BP 118/71; PULSE 64; RESP 16; TEMP 36.6; O2SAT 100
--- NOTE | 2019-08-07 08:06 | ANE.PACU2 ---
 Inpatient post-anesthesia follow up: Airway intact: Yes Vital signs: Temperature 98.1 F Pulse Rate 80 Respiratory Rate 18 Blood Pressure 118/66 Pulse Oximetry 100 Oxygen Delivery Me thod Room Air Oxygen Flow Rate Fraction of Inspir ed Oxygen Hydration adequate: Yes Nausea and vomiting: No Pain level: 1 Mental status: Baseline
[2019-08-07 08:10] VITALS: BP 115/60; PULSE 65; RESP 16; TEMP 36.6
[2019-08-07] MEDS: HYDROcodone-acetaminophen 5-325 mg Tablet 1 TAB PO (08:16)
[2019-08-13 10:31] LABS: Stone Source RIGHT URETER
== END 2019-08-07 09:05 | disposition home or self-care (01) ==
PROVIDERS: Visit Provider Urology
PROC: 0TJB8ZZ Inspection of Bladder, Via Natural or Artificial Opening Endoscopic (ICD-10-PCS; CPT 52000; principal; 2019-08-07 07:00)
PROC: (CPT 74420; 2019-08-07 07:00)
PROC: (CPT 52356; 2019-08-07 07:00)
PROC: (CPT 52356; 2019-08-07 07:00)
DX: N20.1 Calculus of ureter (principal); Z87.891 Personal history of nicotine dependence
CPT/HCPCS: 52356; 12345; 76000; 82365; 88300; C1725; C2625; J1100; J1956; J2001; J2405; J2704; J2710; J3010; J3490; J7030

== ENCOUNTER 2019-08-15 11:24 | Outpatient (CLI) | payer MEDICAID, SELFPAY ==
--- NOTE | 2019-08-15 11:28 | XR_ITS ---
WS: [id number] ABDOMEN 1 VIEW(S) HISTORY: RIGHT DISTAL URETERAL CALCULUS COMPARISON: 08/06/2019 RIGHT ureteral stent is inferiorly migrated into the mid ureter. Proximal coil projects over the RIGH T sacrum. The distal coil is above the symphysis pubis. May be partially extruded or within a cystoce le. Several small calcifications project over the RIGHT kidney. No bone abnormality. XR/XR KUB [id number] IMPRESSION: 1. Inferior migration of the double pigtail RIGHT ureteral stent since 08/07/19 20. 2. Several small calcifications over the RIGHT kidney.
== END 2019-08-15 11:25 | disposition home or self-care (01) ==
PROVIDERS: Visit Provider Urology
DX: N20.1 Calculus of ureter (principal); Z96.0 Presence of urogenital implants; N28.89 Other specified disorders of kidney and ureter
CPT/HCPCS: 74018; 81001

== ENCOUNTER 2019-08-16 13:21 | Inpatient (IN) | payer MEDICAID, SELFPAY ==
[2019-08-16] VITALS (13 sets, daily range): BP systolic 99–129; BP diastolic 61–73; PULSE 80–130; RESP 15–24; TEMP 36.9–37.5; O2SAT 95–100; BMI 25.0
--- NOTE | 2019-08-16 13:28 | W.ED.GENADLT ---
HPI - General Adult General: Chief complaint: General Medical Stated complaint: KIDNEY PAIN Time Seen by Provider: 08/16/19 13:27 History of Present Illness: HPI narrative: 28-year-old female was seen earlier last month with 3 fairly good size UVJ stone on the right one had passed the other [address] was present on her previous CT. She subsequently had a lithotripsy and a stent placement stent was dislodged and was removed from her bladder by cystoscopy by Dr. Roy yesterday. She comes in today complaining of chills she denies a fever she has severe right flank pain. Stated started last night and worsened throughout the night and this morning to the point where she cannot tolerate it. She had some vomiting prior to and after arriving here no hematochezia no hematemesis or coffee-ground emesis no melena no hematochezia. States she just hurts all over today. She cannot recall any particular trauma. She refers all of her pain to the right flank. Onset (ago): day(s) Location: right (Flank) Radiation: other (Groin) Severity: severe Severity scale (1-10): 10 Quality: burning, stabbing and constant Pain Consistency: constant Relieving factors: none Exacerbating factors: none Associated symptoms: Reports fevers/chills, malaise, nausea and vomiting; Deny chest pain, dyspnea or rash Review of Systems Const: Reports: malaise ENMT: Denies: throat pain, ear pain, nasal discharge or nasal congestion Card: Denies: chest pain, edema, shortness of breath on exertion or shortness of breath when lying down Resp: Denies: shortness of breath, productive cough or non-productive cough GI: Reports: nausea and vomiting : Reports: flank pain, difficulty urinating, painful urination, urinary frequency and urinary urgency Skin/Breast: Denies: rash or itching PFSH ED PFSH: Medical History Kidney stones Obstructive pyelonephritis Surgical History History of ureter stent Family History Mother Cancer heart Father Cancer breast Social History Smoking and tobacco status: former smoker Alcohol intake: never Marital status: Single Current occupational status: unemployed History of recent travel: No Physical Exam Const: GENERAL APPEARANCE: cooperative; not comfortable ORIENTATION/CONSCIOUSNESS: Yes awake, Yes oriented to person, Yes oriented to place and Yes oriented to time HENMT: COMMON NORMALS: normocephalic, head/scalp atraumatic, hearing grossly normal bilaterally, external ears normal, EAC's normal, TM's normal bilaterally, nasal mucous membranes and turbinates normal, moist oral mucous membranes and oropharynx normal HEAD & SCALP: normocephalic and atraumatic NOSE: nasal mucous membranes and turbinates normal EXTERNAL EAR: Yes external ears normal EXTERNAL AUDITORY CANAL: EAC's normal TYMPANIC MEMBRANE: TM's normal bilaterally Eye: COMMON NORMALS: PERRL, EOMs intact bilaterally, conjunctivae normal and no scleral icterus CONJUNCTIVA: Yes conjunctivae normal PUPIL: Yes PERRL Neck/C-Spine: COMMON NORMALS: full ROM, no lymphadenopathy, supple and no JVD Lymph: LYMPHATIC: no lymphadenopathy noted and no lymphedema noted Resp: COMMON NORMALS: normal respiratory effort, no retractions, no use of accessory muscles and clear to auscultation bilaterally AUSCULTATION: clear to auscultation bilaterally Cardio: COMMON NORMALS: no JVD, regular rate, regular rhythm and no murmurs RATE: regular rate RHYTHM: regular rhythm GI: COMMON NORMALS: soft to palpation and no hepatosplenomegaly AUSCULTATION: Yes normoactive bowel sounds PALPATION: Yes soft, No tender, No guarding and Yes no hepatosplenomegaly : BLADDER/KIDNEY EXAM: Yes CVA tenderness Back/Pelvis: GENERAL BACK: Yes CVA tenderness CVA tenderness: right Extremity: COMMON NORMALS: normal to inspection, normal capillary refill, no clubbing, cyanosis or edema, no calf tenderness and no pedal edema Neuro: SENSORIUM/ORIENTATION: Yes oriented to person, Yes oriented to place and Yes oriented to time Skin: COMMON NORMALS: no rashes or lesions noted GENERAL SKIN EXAM: no rashes or lesions noted Course Vital Signs: Vital signs: Vital Signs Temperature 99.3 F 08/16/19 13:33 Pulse Rate 96 08/16/19 13:33 Respiratory Rate 16 08/16/19 15:17 Blood Pressure 112/65 08/16/19 13:33 Pulse Oximetry 95 08/16/19 15:17 MDM - General Adult MDM Narrative: Medical decision making narrative: CT shows some pretty significant hydronephrosis on the right. Discussed with Dr. Roy thinks that the UVJ probably spasm down from inflammation after the stent came out causing a functional obstruction. He is planning on treating her as an obstructive pyelonephritis taking her to surgery replacing the stent she is already received a dose of antibiotics pain medicines and is getting a second liter of fluids she will be admitted after surgery. Lab Data: Labs: Lab Results 08/16/19 08/16/19 08/16/19 Range/Units 13:40 13:46 13:56 WBC 15.1 H (4.0-10.0) 10^3/ uL RBC 3.98 L (4.1-5.3) 10^6/u L Hgb 9.3 L (11.5-15.3) g/dL Hct 31.1 L (37.0-47.0) % MCV 78.1 L (81-99) fL MCH 23.4 L (28.0-34.0) pg MCHC 29.9 L (30.0-36.0) g/dL RDW 15.1 (12.1-15.1) % Plt Count 358 (130-400) 10^3/c mm MPV 10.3 (7.4-10.4) fL Neut % (Auto) 88.2 % Lymph % (Auto) 5.4 % [place] % (Auto) 5.0 % Eos % (Auto) 0.8 % Baso % (Auto) 0.3 % Neut # (Auto) 13.3 H (1.8-7.7) 10^3/u L Lymph # (Auto) 0.8 (0.8-4.8) 10^3/u L [place] # (Auto) 0.8 (0.2-0.9) 10^3/u L Eos # (Auto) 0.1 (0.0-0.8) 10^3/u L Baso # (Auto) 0.1 (0.0-0.1) 10^3/u L Nucleated RBC % (a uto) 0 % Nucleated RBCs # 0.0 /100WBC Sodium (136-145) mmol/L Potassium (3.5-5.1) mmol/L Chloride (98-107) mmol/L Carbon Dioxide (22-29) mmol/L Anion Gap (5-19) BUN (6-20) mg/dL Creatinine (0.5-0.9) mg/dL GFR Calculation (90-130) mL/min Glucose (65-115) mg/dL Calculated Osmolal ity (285-295) mOsm/k g Lactate 1.8 (0.5-2.2) mmol/L Calcium (8.5-10.5) mg/dL Total Bilirubin (0.15-1.2) mg/dL AST (0-32) U/L ALT (0-33) U/L Alkaline Phosphata se (35-105) IU/L Total Protein (6.6-8.7) g/dL Albumin (3.5-5.2) g/dL Globulin (1.3-4.6) g/dL HCG, Qual Negative (Negative) Urine Color (Yellow) Urine Appearance (CLEAR) Urine pH (5-7) Ur Specific Gravit y (1.005-1.030) Urine Protein (Negative) Urine Glucose (UA) (Normal) Urine Ketones (Negative) Urine Blood (Negative) Urine Nitrate (Negative) Urine Bilirubin (NEGATIVE) Urine Urobilinogen (Negative) mg/dL Ur Leukocyte Steffany ase (Negative) Ur Microscopic Ind ic Urine RBC (0-2) /hpf Urine WBC (0-5) /hpf Ur Squamous Epith Cells (0-5) Amorphous Sediment Urine Bacteria (NONE) 08/16/19 08/16/19 08/16/19 Range/Units 13:56 14:30 14:34 WBC (4.0-10.0) 10^3/ uL RBC (4.1-5.3) 10^6/u L Hgb (11.5-15.3) g/dL Hct (37.0-47.0) % MCV (81-99) fL MCH (28.0-34.0) pg MCHC (30.0-36.0) g/dL RDW (12.1-15.1) % Plt Count (130-400) 10^3/c mm MPV (7.4-10.4) fL Neut % (Auto) % Lymph % (Auto) % [place] % (Auto) % Eos % (Auto) % Baso % (Auto) % Neut # (Auto) (1.8-7.7) 10^3/u L Lymph # (Auto) (0.8-4.8) 10^3/u L [place] # (Auto) (0.2-0.9) 10^3/u L Eos # (Auto) (0.0-0.8) 10^3/u L Baso # (Auto) (0.0-0.1) 10^3/u L Nucleated RBC % (a uto) % Nucleated RBCs # /100WBC Sodium 135 L (136-145) mmol/L Potassium 3.4 L (3.5-5.1) mmol/L Chloride 104 (98-107) mmol/L Carbon Dioxide 20 L (22-29) mmol/L Anion Gap 14.4 (5-19) BUN 12 (6-20) mg/dL Creatinine 0.7 (0.5-0.9) mg/dL GFR Calculation 98.9 (90-130) mL/min Glucose 93 (65-115) mg/dL Calculated Osmolal ity 276 L (285-295) mOsm/k g Lactate (0.5-2.2) mmol/L Calcium 8.4 L (8.5-10.5) mg/dL Total Bilirubin 0.5 (0.15-1.2) mg/dL AST 12 (0-32) U/L ALT 10 (0-33) U/L Alkaline Phosphata se 40 (35-105) IU/L Total Protein 6.4 L (6.6-8.7) g/dL Albumin 3.7 (3.5-5.2) g/dL Globulin 2.7 (1.3-4.6) g/dL HCG, Qual (Negative) Urine Color Yellow Yellow (Yellow) Urine Appearance Sl cloudy A Sl cloudy A (CLEAR) Urine pH 9 H 9 H (5-7) Ur Specific Gravit y 1.015 1.015 (1.005-1.030) Urine Protein Neg Neg (Negative) Urine Glucose (UA) Norm Norm (Normal) Urine Ketones Negative 1+ H (Negative) Urine Blood 2+ H 2+ H (Negative) Urine Nitrate Positive H Positive H (Negative) Urine Bilirubin Neg Neg (NEGATIVE) Urine Urobilinogen Norm Norm (Negative) mg/dL Ur Leukocyte Steffany ase Trace H Negative (Negative) Ur Microscopic Ind ic Cancelled Urine RBC 0-4 H 0-4 H (0-2) /hpf Urine WBC 15-25 H 5-10 H (0-5) /hpf Ur Squamous Epith Cells 10-15 H 5-10 H (0-5) Amorphous Sediment Not Reportable Urine Bacteria 3+ H 3+ H (NONE) Coding Level of Care Code ED Counter Caser for Chg Fwd Exam Comprehensive
--- NOTE | 2019-08-16 13:29 | CTR_ITS ---
PROCEDURE INFORMATION: Exam: CT Abdomen And Pelvis Without Contrast Exam date and time: 08/16/2019 2:07 PM Age: 28 years old Clinical indication: Abdominal pain; Flank; Right; Additional info: Flank pain TECHNIQUE: Imaging protocol: Computed tomography of the abdomen and pelvis without contrast. Axial, coronal and sagittal reformatted images were created and reviewed. Radiation optimization: All CT scans at this facility use at least one of these dose optimization techniques: automated exposure control; mA and/or kV adjustment per patient size (includes targeted exams where dose is matched to clinical indication); or iterative reconstruction. COMPARISON: CT kidney stone [id number] 08/06/2019 3:48:23 PM RADIATION DOSE METRICS: Total DLP: 975.96 mGy-cm FINDINGS: Liver: Unremarkable. Gallbladder and bile ducts: No radiodense gallstones. No biliary ductal dilatation. Pancreas: Unremarkable. Spleen: Unremarkable. Adrenals: Unremarkable. Kidneys and ureters: Moderate to severe right-sided hydroureteronephrosis and perinephric/periureteral edema, somewhat increased since the prior study. No obstructing radiodense ureteral or bladder calculi at this time. Nonobstructing bilateral renal calculi. Stomach and bowel: No bowel wall thickening. No obstruction. No pneumatosis. Appendix: Normal. Intraperitoneal space: Trace nonspecific free pelvic fluid, likely physiologic. No organized fluid collection. No free air. Vasculature: Unremarkable. No aneurysm. Lymph nodes: No pathologically enlarged lymph nodes. Bladder: Punctate focus of gas in the nondependent urinary bladder. Reproductive: 3.5 x 3 cm left adnexal cystic lesion. Bones/joints: No acute osseous abnormality. Soft tissues: Unremarkable. CT/CT kidney stone [id number] IMPRESSION: 1. Moderate to severe right-sided hydroureteronephrosis and perinephric/periureteral edema, somewhat increased since the prior study. No obstructing radiodense ureteral or bladder calculi at this time. Findings are likely related to recent passage of the previously seen distal right ureteral calculi. 2. 3.5 x 3 cm left adnexal cystic lesion. If clinically indicated, pelvic ultrasound may be obtained for further evaluation. 3. Additional findings, as above. Radiation Dose CTDIVOL = (mGy): DLP = 975.96 (mGy-cm)
[2019-08-16] MEDS: sodium chloride 0.9% 1,000 ML 999 ML IV ×2 (13:43→15:19)
[2019-08-16] MEDS: morphine 4 mg/mL SDV 1 mL IVP (13:44)
[2019-08-16] MEDS: ondansetron 2 mg/ML SDV 2 mL 4 MG IVP ×2 (13:45→15:07)
[2019-08-16 14:01] LABS: Basophils # 0.1 10^3/uL (0.0-0.1); Basophils % 0.3 %; Eosinophils # 0.1 10^3/uL (0.0-0.8); Eosinophils % 0.8 %; Hematocrit 31.1 % (37.0-47.0); Hemoglobin 9.3 g/dL (11.5-15.3); Lymphocytes # 0.8 10^3/uL (0.8-4.8); Lymphocytes % 5.4 %; Mean Corpuscular HGB Conc 29.9 g/dL (30.0-36.0); Mean Corpuscular Hemoglobin 23.4 pg (28.0-34.0); Mean Corpuscular Volume 78.1 fL (81-99); Mean Platelet Volume 10.3 fL (7.4-10.4); Monocytes # 0.8 10^3/uL (0.2-0.9); Neutrophils # 13.3 10^3/uL (1.8-7.7); Neutrophils % 88.2 %; Nucleated Red Blood Cells % 0 %; Platelet Count 358 10^3/cmm (130-400); Red Blood Count 3.98 10^6/uL (4.1-5.3); Red Cell Distribution Width 15.1 % (12.1-15.1); White Blood Count 15.1 10^3/uL (4.0-10.0)
[2019-08-16 14:04] LABS: HCG Qualitative Urine. Negative (Negative)
[2019-08-16 14:09] LABS: Specific Gravity, Urine 1.015 (1.005-1.030); Urine Color Yellow (Yellow); pH Urine 9 (5-7)
[2019-08-16 14:10] LABS: Add Urine Culture? No; Add Urine Microscopic? YES; Bacteria Urine 3+; Bilirubin Urine Neg (NEGATIVE); Blood Urine 2+ (Negative); Glucose Urine UA Norm (Normal); Ketones Urine Negative (Negative); Leukocyte Esterase Urine Trace (Negative); Nitrate Urine Positive (Negative); Protein Urine Neg (Negative); RBC Urine 0-4 /hpf (0-2); Urobilinogen Urine Norm (Negative); WBC Urine 15-25 /hpf (0-5)
[2019-08-16 14:14] LABS: Lactate (Lactic Acid level) 1.8 mmol/L (0.5-2.2)
[2019-08-16 14:59] LABS: Specific Gravity, Urine 1.015 (1.005-1.030); Urine Color Yellow (Yellow); pH Urine 9 (5-7)
[2019-08-16 15:00] LABS: Bilirubin Urine Neg (NEGATIVE); Blood Urine 2+ (Negative); Glucose Urine UA Norm (Normal); Ketones Urine 1+ (Negative); Leukocyte Esterase Urine Negative (Negative); Nitrate Urine Positive (Negative); Protein Urine Neg (Negative); Urobilinogen Urine Norm (Negative)
[2019-08-16] MEDS: cefTRIAXone 1,000 MG in sodium chloride 0.9% (plus) 50 ML 100 MG IV (15:01)
[2019-08-16 15:02] LABS: Add Urine Culture? Yes; Bacteria Urine 3+; RBC Urine 0-4 /hpf (0-2)
[2019-08-16 15:03] LABS: Alanine Aminotransferase 10 U/L (0-33); Albumin Level 3.7 g/dL (3.5-5.2); Alkaline Phosphatase 40 IU/L (35-105); Anion Gap 14.4 (5-19); Aspartate Amino Transferase 12 U/L (0-32); Blood Urea Nitrogen 12 mg/dL (6-20); Calcium 8.4 mg/dL (8.5-10.5); Carbon Dioxide 20 mmol/L (22-29); Chloride 104 mmol/L (98-107); Globulin 2.7 g/dL (1.3-4.6); Glomerular Filtration Rate 98.9 mL/min (90-130); Glucose 93 mg/dL (65-115); Osmolality Calculated 276 mOsm/kg (285-295); Potassium 3.4 mmol/L (3.5-5.1); Sodium 135 mmol/L (136-145); Total Bilirubin 0.5 mg/dL (0.15-1.2); Total Protein 6.4 g/dL (6.6-8.7)
[2019-08-16] MEDS: HYDROmorphone 1 mg/mL INJ 1 mL IVP (15:17)
--- NOTE | 2019-08-16 15:17 | PM.HP ---
Providers/Chief Complaint Admitting Physician: Manuela Chief Complaint: CYSTOSCOPY, RT RETROGRADE,STENT,POSS URETEROSCOPY History of Present Illness : 1. White count 15.7Akami Pike is a 28 year old female who in April of this year was diagnosed with obstructing right distal ureteral stones with high-grade hydroureteronephrosis. She did not follow-up until 08/06/2019 when she developed increasing pain again and was evaluated in the emergency department with the stones roughly in the same position. Hydroureteronephrosis had increased somewhat. On the following day she underwent cystoscopy, right retrograde ureteropyelogram, ureteroscopy, laser and stent. The procedure went well and the stone fragments were removed. There was some inflammation around the stones and it was decided to leave a stent indwelling and it was originally planned to leave the stent in for about 2 weeks. Yesterday she presented to the clinic with insensate continuous incontinence. No stent was readily visible on the outside of the urethral meatus but it was presumed that the stent had migrated distally and a KUB confirmed that. We discussed the options of removing the stent with the hope that her edema had completely resolved or pushing the stent back into the bladder or changing the stent in the operating room. After detailed discussion she elected to have the stent removed and I thought that was a reasonable option. Initially she did well but she developed increasing right flank pain last night. I spoke to her this morning and her pain was reasonably responding to the pain medication and encouraged her to continue it and if her pain cannot be well controlled to let me know. About an hour or 2 ago I received a call that she was having chills, increasing discomfort, nausea and vomiting. I instructed her to go to the emergency department for further evaluation. I reviewed the case with Dr. Rocha. Work-up in the emergency department: 1. White count 15.1 2. Creatinine 0.7 3. Urinalysis (cath specimen): 5-10 white cells 5-10 red cells 3+ bacteria with nitrites positive 4. CT scan: Severe right hydroureteronephrosis with increased dilation of the ureter down to the area of the previous stone location consistent with ureteral obstruction from edema. No stones were seen in that area. There is no extravasation of fluid identified either Working diagnosis is obstructive pyelonephritis and it is recommended that she go to the operating room emergently for cystoscopy, right retrograde ureteropyelogram, stent placement and if necessary ureteroscopy. We also discussed the possibility of if access could not be obtained in a retrograde fashion she might require percutaneous nephrostomy tube placement which unfortunately is not available here in the absence of interventional radiology. We both hope desperately that that is not going to be required. Review of Systems Const: Reports: chills, body aches, fatigue and malaise; Denies: fever Eyes: Denies: change in vision ENMT: Denies: throat pain Card: Denies: chest pain, palpitations or syncope Resp: Denies: shortness of breath, productive cough or non-productive cough GI: Reports: abdominal pain, nausea and vomiting; Denies: difficulty swallowing : Reports: flank pain; Denies: difficulty urinating Musc: Denies: joint swelling or redness Skin/Breast: Denies: rash Neuro: Denies: slurred speech or seizure-like activity Psych: Reports: anxiety (Related to illness) Endo: Denies: excessive urination Thanh/Lymph: Denies: easy bruising or easy bleeding All/Imm: Denies: hives Medications/Allergies Home Medications Medication Instructions Recorded Confirmed Last Taken Type levonorgestrel-ethinyl estrad 1 tab PO DAILY 08/06/19 08/16/19 08/15/19 History [Lute (27)] Allergies Allergy/AdvReac Type Severity Reaction Status Date / Time Penicillins Allergy ALGY-Anaphy Verified 08/16/19 13:34 laxis propoxyphene Allergy ALGY-Anaphy Verified 08/16/19 13:34 [From Darvocet-N] laxis PFSH Acute PFSH: Medical History Kidney stones Obstructive pyelonephritis Surgical History History of ureter stent Family History Mother Cancer heart Father Cancer breast Social History Smoking and tobacco status: former smoker Alcohol intake: never Marital status: Single Current occupational status: unemployed History of recent travel: No Female Reproductive History: Date of last menstrual period: 07/16/19 Vitals/I&O/Wt Last Vital Signs Temp 99.3 F 08/16/19 13:33 Pulse 96 08/16/19 13:33 Resp 16 08/16/19 13:44 BP 112/65 08/16/19 13:33 Pulse Ox 97 08/16/19 13:44 08/16/19 08/16/19 08/16/19 06:59 14:59 22:59 Intake Total 1000 / 1000 Balance 1000 / 1000 Weight last 48 hrs Weight 150 lb Physical Exam Const: COMMON NORMALS: no apparent distress, alert and well nourished GENERAL APPEARANCE: well kempt and well developed ORIENTATION/CONSCIOUSNESS: not confused HENMT: COMMON NORMALS: normocephalic and head/scalp atraumatic Eye: COMMON NORMALS: conjunctivae normal and no scleral icterus Neck/C-Spine: GENERAL: Yes normal visual inspection Resp: COMMON NORMALS: normal respiratory effort EFFORT & INSPECTION: No labored and No actively coughing AUSCULTATION: clear to auscultation bilaterally Cardio: COMMON NORMALS: no JVD and regular rate RATE: tachycardic GI: PALPATION: Yes tender Details: RLQ and RUQ : OTHER: Bladder nondistended Normal external female genitalia. Normal urethra urethral meatus. No vaginal discharge. Extremity: COMMON NORMALS: no clubbing, cyanosis or edema Neuro: COMMON NORMALS: no focal motor deficits SENSORIUM/ORIENTATION: Yes alert Psych: COMMON NORMALS: mental status grossly normal APPEARANCE: Yes grossly normal and Yes well kempt ATTITUDE: Yes calm and Yes engaged Skin: COMMON NORMALS: no rashes or lesions noted and no jaundice Data : 08/16/19 13:40 08/16/19 14:34 Micro: Microbiology 08/16/19 13:49 Blood Culture - Preliminary Blood SPECIMEN COLLECTED 08/16/19 13:46 Blood Culture - Preliminary Blood SPECIMEN COLLECTED Attestations Medical Necessity Statement*: Patient failed outpatient management of renal colicky symptoms and now shows evidence of UTI in the face of urinary obstruction. She requires emergency stenting and will be required to stay in the hospital with IV antibiotics until clear evidence that she has recovered. 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
[2019-08-16 15:47] LABS: Sulfosalicylic Acid Urine Negative (Negative)
[2019-08-16 15:48] LABS: Sulfosalicylic Acid Urine Negative (Negative)
[2019-08-16] MEDS: potassium chloride premix 40 MEQ/100 ML PREMIX 25 MEQ IV (15:55)
--- NOTE | 2019-08-16 16:04 | ANES.PREANE2 ---
Pre-Anesthetic Assessment Pre-Anesthetic Assessment: Height/Weight: Height 1.65 m Weight 68.039 kg Temp Pulse Resp BP Pulse Ox 99.3 F 96 15 112/65 95 08/16/19 13:33 08/16/19 13:33 08/16/19 15:28 08/16/19 13:33 08/16/19 15:17 Preop Diagnosis: Refractory right distal ureteral stone Proposed Procedure: Cystoscopy w/ stent Familial anesthetic complications: None Was Beta Cornelia taken within 24 hours: N/A Last intake: Intake [employer] pizza and soda at 1030 (vomited it up a couple of hours ago) Last Liquid Date 08/16/19 Last Liquid Time 10:30 Last Solid Date 08/16/19 Last Solid Time 10:30 Social: Social History: No alcohol Comment: former smoker Exam: Pre-Anes Outpt Exam: alert, oriented x 3, clear to auscultation bilaterally and regular rate & rhythm Airway: Cervical ROM: WNL Dentition: False Pulmonary: Pulmonary: None reported CV/HEM: CV/HEM: None reported : : None reported Hepatic: Hepatic: None reported GI: GI: None reported Metabolic: Metabolic: None reported Musc/skel: Musc/skel: None reported Neuropsych: Neuropsych: None reported Anesthetic Plan: ASA status: 2E Anesthesia: General Risk of > 500 ml blood loss (7ml/kg in children): No Meds/Allergies Current Medications: Current Medications Generic Name Dose Route Start Last Admin Trade Name Freq PRN Reason Stop Dose Admin Sodium Chloride 1,000 mls @ 999 m ls/hr 08/16/19 15:14 08/16/19 15:19 Sodium Chloride 0.9% IV 08/16/19 16:14 999 mls/hr .Q1H1M ONE Administration Potassium Chloride 40 meq in 100 mls @ 25 mls/hr 08/16/19 15:50 08/16/19 15:55 K-Bertrand IV 08/16/19 19:49 25 mls/hr ONCE ONE Administration PFSH Anesthesia PFSH: Medical History Kidney stones Obstructive pyelonephritis Surgical History History of ureter stent Family History Mother Cancer heart Father Cancer breast Social History Smoking and tobacco status: former smoker Alcohol intake: never Marital status: Single Current occupational status: unemployed History of recent travel: No Female Reproductive History: Date of last menstrual period: 07/16/19 Data Anesthesia CBC & Chem 7: 08/16/19 13:40 08/16/19 14:34 Other Labs: Laboratory Results - last 48 hr 08/16/19 08/16/19 08/16/19 13:40 13:46 13:56 WBC 15.1 H RBC 3.98 L Hgb 9.3 L Hct 31.1 L MCV 78.1 L MCH 23.4 L MCHC 29.9 L RDW 15.1 Plt Count 358 MPV 10.3 Neut % (Auto) 88.2 Lymph % (Auto) 5.4 [place] % (Auto) 5.0 Eos % (Auto) 0.8 Baso % (Auto) 0.3 Neut # (Auto) 13.3 H Lymph # (Auto) 0.8 [place] # (Auto) 0.8 Eos # (Auto) 0.1 Baso # (Auto) 0.1 Nucleated RBC % (auto) 0 Nucleated RBCs # 0.0 Sodium Potassium Chloride Carbon Dioxide Anion Gap BUN Creatinine GFR Calculation Glucose Calculated Osmolality Lactate 1.8 Calcium Total Bilirubin AST ALT Alkaline Phosphatase Total Protein Albumin Globulin HCG, Qual Negative Urine Color Urine Appearance Urine pH Ur Specific [place] Urine Protein Urine Glucose (UA) Urine Ketones Urine Blood Urine Nitrate Urine Bilirubin Prot Sulfosalicylic Acd Urine Urobilinogen Ur Leukocyte Esterase Ur Microscopic Indic Urine RBC Urine WBC Ur Squamous Epith Cells Amorphous Sediment Urine Bacteria 08/16/19 08/16/19 08/16/19 13:56 14:30 14:34 WBC RBC Hgb Hct MCV MCH MCHC RDW Plt Count MPV Neut % (Auto) Lymph % (Auto) [place] % (Auto) Eos % (Auto) Baso % (Auto) Neut # (Auto) Lymph # (Auto) [place] # (Auto) Eos # (Auto) Baso # (Auto) Nucleated RBC % (auto) Nucleated RBCs # Sodium 135 L Potassium 3.4 L Chloride 104 Carbon Dioxide 20 L Anion Gap 14.4 BUN 12 Creatinine 0.7 GFR Calculation 98.9 Glucose 93 Calculated Osmolality 276 L Lactate Calcium 8.4 L Total Bilirubin 0.5 AST 12 ALT 10 Alkaline Phosphatase 40 Total Protein 6.4 L Albumin 3.7 Globulin 2.7 HCG, Qual Urine Color Yellow Yellow Urine Appearance Sl cloudy A Sl cloudy A Urine pH 9 H 9 H Ur Specific [place] 1.015 1.015 Urine Protein Neg Neg Urine Glucose (UA) Norm Norm Urine Ketones Negative 1+ H Urine Blood 2+ H 2+ H Urine Nitrate Positive H Positive H Urine Bilirubin Neg Neg Prot Sulfosalicylic Acd Negative Negative Urine Urobilinogen Norm Norm Ur Leukocyte Esterase Trace H Negative Ur Microscopic Indic Cancelled Urine RBC 0-4 H 0-4 H Urine WBC 15-25 H 5-10 H Ur Squamous Epith Cells 10-15 H 5-10 H Amorphous Sediment Not Reportable Urine Bacteria 3+ H 3+ H Micro: Microbiology 08/16/19 13:49 Blood Culture - Preliminary Blood SPECIMEN COLLECTED 08/16/19 13:46 Blood Culture - Preliminary Blood SPECIMEN COLLECTED Cardiac Studies: No Data to Display
[2019-08-16] MEDS: HYDROmorphone 1 mg/mL INJ 1 mL 0.5 MG IVP (16:06)
--- NOTE | 2019-08-16 16:31 | P.OP_ITS ---
Operative Report Date of procedure: August 16, 2019 Pre-op Diagnosis: Obstructive pyelonephritis Post-op diagnosis: same Procedure Done: Cystoscopy, right retrograde ureterogram, right ureteral stent placed Implants: Right ureteral stent (7 Somali by 28 cm double-pigtail without string) Pathology: none sent Surgeon: Manuela Anesthesia: General Estimated blood loss: Minimal Disposition: PACU Brief History: Kyara is a very pleasant 28-year-old white female who recently underwent endoscopic treatment with laser and stent for longstanding right distal ureteral stones. She did well. A stent was left indwelling. Unfortunately the stent migrated into the urethra and led to significant insensate incontinence. I saw her in the office on 08/15/2019 and KUB confirmed distal migration. We reviewed the options of leaving the stent and by pushing it back into the bladder or taking it out or changing it in the operating room. The stent had been in place for 8 days and it was felt that it would likely have allowed enough healing and passive dilation to warrant an attempt at stent removal. She did have chronic dilation of the collecting system. Last night she developed increasing pain and today she developed chills rigors throwing up and feeling terrible. ED evaluation revealed a white count of 15.1, normal creatinine, CT scan demonstrating increased hydroureteronephrosis to the level of the prior surgery no evidence of extravasation etc. Urine showed white cells and nitrite positive and it was elected to take her to the operating room emergently for stenting of obstructive pyelonephritis. We reviewed the usual expectations and the unusual possibility of inability to access the ureter in retrograde fashion and therefore requiring percutaneous nephrostomy by interventional radiology unfortunately not available at [facility]. She was taken to the operating room emergently for attempted stenting. Procedure: After emergent evaluation examination and obtaining of informed consent she was taken to the operating suite on 08/16/2019 where general anesthesia was administered without difficulty after appropriate timeout was pe rformed, SCDs confirmed to be functioning, preoperative antibiotics administered, beta-jamil protocol confirmed. Prepped and draped in the usual sterile fashion in dorsolithotomy position pain careful attention to voiding pressure points. 21 Somali cystoscope with 30 degree lens was introduced into the urethra meatus and advanced into the bladder under videoscopy. Bladder was systematically e xamined and found to be within normal limits. An 8 Somali cone-tipped catheter was intubated into the RIGHT ureteral orifice for right retrograde ureterogram: Only a small amount of contrast was injected into the ureter demonstrating a normal distal ureter, a narrowed area where the stones had been located, and an abrupt change to a very dilated ureter more proximal to that point. No extravasation. Flexible tip guidewire was then passed up the left ureter easily bypassing this narrowed area and curling in the area of the kidney. An open-ended ureteral catheter was then advanced over the guidewire into the renal pelvis and the guidewire removed. A very small amount of contrast was injected to confirm appropriate positioning of the guidewire. It was so. The wire was passed back through the open-ended ureteral catheter and then a 7 Somali by 28 cm double-pigtail stent without string was easily advanced over the guidewire into appropriate position as confirmed via fluoroscopy and cystoscopy. Bladder was drained and the procedure completed. No Bee catheter. Tolerated the procedure well without complications and was awakened in the operating room and returned to recovery in stable condition with anticipation of transfer to the floor.
[2019-08-16] MEDS: sodium chloride 0.9% 1,000 ML 30 ML IV (16:35)
[2019-08-16] MEDS: iohexol 300 mg/mL 50 mL Btl (OR ONLY) XX (16:52)
--- NOTE | 2019-08-16 17:16 | SUR.PHASEI ---
1701 pt to pacu sleepy with good resp pt awakes to voice vss abd soft 1715 pt taking ice chips rates pain at 2 sleeps if not disturbed.
--- NOTE | 2019-08-16 17:22 | XR_ITS ---
WS: [id number] XR abdomen min 2V [id number] REASON FOR EXAM: OR PICS FINDINGS: Retrograde study of the right kidney shows dilation of the right kidney the stent is seen i n the lower half of the pelvis of the kidney and is mild dilatation noted on injection of the ureter. XR/XR abdomen min 2V [id number] IMPRESSION: Hydronephrosis hydroureter.
--- NOTE | 2019-08-16 17:50 | SUR.PHASEI ---
1730 pt to floor pt up walked to bed without assistance, alert taking ice chips bp 92/54, hr 104, resp, 18. sats on ra 98%
[2019-08-16] MEDS: cefTRIAXone 2,000 MG in sodium chloride 0.9% (plus) 50 ML 100 MG IV (18:02)
[2019-08-16] MEDS: lactated ringers 1,000 ML 150 ML IV ×2 (18:02→23:57)
[2019-08-16] MEDS: docusate sodium 100 mg Capsule PO (18:03)
[2019-08-16] MEDS: ketorolac 30 mg/mL INJ 15 MG IVP ×2 (18:05→23:57)
--- NOTE | 2019-08-16 18:11 | PC.NURSE ---
Received pt from surgery. oriented to room , bed in low postion locked and call light in reach
[2019-08-16] MEDS: zolpidem 5 mg Tablet PO (22:26)
[2019-08-17] MEDS: HYDROcodone-acetaminophen 5-325 mg Tablet 1 TAB PO ×3 (02:39→15:22)
[2019-08-17 05:50] LABS: Basophils % 0.2 %; Hematocrit 26.8 % (37.0-47.0); Hemoglobin 8.1 g/dL (11.5-15.3); Lymphocytes # 0.6 10^3/uL (0.8-4.8); Lymphocytes % 2.6 %; Mean Corpuscular HGB Conc 30.2 g/dL (30.0-36.0); Mean Corpuscular Hemoglobin 23.9 pg (28.0-34.0); Mean Corpuscular Volume 79.1 fL (81-99); Mean Platelet Volume 10.1 fL (7.4-10.4); Monocytes # 1.3 10^3/uL (0.2-0.9); Monocytes % 5.5 %; Neutrophils # 21.4 10^3/uL (1.8-7.7); Neutrophils % 90.7 %; Nucleated Red Blood Cells % 0 %; Platelet Count 315 10^3/cmm (130-400); Red Blood Count 3.39 10^6/uL (4.1-5.3); Red Cell Distribution Width 15.5 % (12.1-15.1); White Blood Count 23.6 10^3/uL (4.0-10.0)
[2019-08-17] MEDS: ketorolac 30 mg/mL INJ 15 MG IVP ×4 (06:02→22:18)
[2019-08-17] MEDS: lactated ringers 1,000 ML 150 ML IV ×3 (06:03→22:19)
[2019-08-17 06:10] LABS: Anion Gap 12.6 (5-19); Blood Urea Nitrogen 7 mg/dL (6-20); Calcium 8.1 mg/dL (8.5-10.5); Carbon Dioxide 21 mmol/L (22-29); Chloride 108 mmol/L (98-107); Creatinine Clr Calc Pharmacy 134.1334; Glomerular Filtration Rate 118.2 mL/min (90-130); Glucose 103 mg/dL (65-115); Osmolality Calculated 282 mOsm/kg (285-295); Potassium 3.6 mmol/L (3.5-5.1); Sodium 138 mmol/L (136-145)
[2019-08-17 07:25] VITALS: BP 109/67; PULSE 73; RESP 20; TEMP 36.7; O2SAT 99
--- NOTE | 2019-08-17 07:53 | P.PN_ITS ---
Subjective Subjective: Interval history: Postoperative day #1 status post emergency right ureteral stent replacement for obstructive pyelonephritis White count has increased to 23.6 this morning. Hemodynamically she has been stable. Afebrile. Feels much better today. Pain and nausea have resolved. No further shaking or chills. Medications: Reviewed: Yes Vitals/I&O/Wt Last Vital Signs Temp 98.0 F 08/17/19 07:25 Pulse 73 08/17/19 07:25 Resp 20 H 08/17/19 07:25 BP 109/67 08/17/19 07:25 Pulse Ox 99 08/17/19 07:25 08/16/19 08/17/19 08/17/19 22:59 06:59 14:59 Intake Total 1290 / 1290 2152.5 / 3442.5 Output Total 400 / 400 800 / 1200 Balance 890 / 890 1352.5 / 2242.5 Weight last 48 hrs Weight 150 lb Physical Exam Const: COMMON NORMALS: no apparent distress, alert and well nourished GENERAL APPEARANCE: well kempt and well developed ORIENTATION/CONSCIOUSNESS: not confused HENMT: COMMON NORMALS: normocephalic and head/scalp atraumatic HEAD & SCALP: normocephalic and atraumatic Neck/C-Spine: COMMON NORMALS: full ROM Resp: COMMON NORMALS: normal respiratory effort EFFORT & INSPECTION: No labored and No actively coughing Neuro: SENSORIUM/ORIENTATION: Yes alert Psych: COMMON NORMALS: mental status grossly normal APPEARANCE: Yes grossly normal and Yes well kempt ATTITUDE: Yes calm and Yes engaged Data : 08/17/19 05:05 08/17/19 05:05 Micro: Microbiology 08/16/19 13:49 Blood Culture - Preliminary Blood SPECIMEN COLLECTED 08/16/19 13:46 Blood Culture - Preliminary Blood SPECIMEN COLLECTED A&P Assessment and plan (1) Obstructive pyelonephritis: Re-obstructions secondary to ureteral edema where the stones had been impacted. Complicated by UTI with obstructive pyelonephritis development. Emergency stenting yesterday. Much better today. White count is elevated more so but her clinical picture is very stable. We will keep her on an inpatient basis due to the antibiotic requirement and persistent leukocytosis and risk associated with potential for continued infectious concerns. Status: Acute (2) Hydronephrosis of right kidney: Stent replaced. Resolution of renal colicky symptoms. Status: Acute Attestations Medical Necessity Statement*: Continues to require hospital care for leukocytosis, obstructive pyelonephritis. Hopefully she can be ready for discharge tomorrow if her labs normalize. 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
[2019-08-17] MEDS: docusate sodium 100 mg Capsule PO ×2 (08:40→17:49)
[2019-08-17 11:22] VITALS: BP 95/55; PULSE 81; RESP 18; TEMP 36.8; O2SAT 97
[2019-08-17] MEDS: levoFLOXacin 750 mg Tablet PO (15:02)
[2019-08-17 15:23] VITALS: BP 96/59; PULSE 86; RESP 22; TEMP 36.6; O2SAT 100
[2019-08-17] MEDS: cefTRIAXone 2,000 MG in sodium chloride 0.9% (plus) 50 ML 100 MG IV (17:49)
[2019-08-17 18:12] VITALS: O2SAT 98
[2019-08-17 20:08] VITALS: BP 109/72; PULSE 88; RESP 18; TEMP 37; O2SAT 99
[2019-08-17] MEDS: zolpidem 5 mg Tablet PO (20:24)
[2019-08-18] VITALS (8 sets, daily range): BP systolic 104–125; BP diastolic 64–79; PULSE 80–114; RESP 16–20; TEMP 36.4–37.5; O2SAT 93–98
[2019-08-18] MEDS: HYDROcodone-acetaminophen 5-325 mg Tablet 1 TAB PO ×2 (01:46→08:08)
[2019-08-18] MEDS: lactated ringers 1,000 ML 150 ML IV ×2 (04:52→19:53)
[2019-08-18] MEDS: ketorolac 30 mg/mL INJ 15 MG IVP ×3 (04:52→17:09)
[2019-08-18 06:24] LABS: Basophils # 0.1 10^3/uL (0.0-0.1); Basophils % 0.3 %; Eosinophils % 0.2 %; Hematocrit 27.2 % (37.0-47.0); Lymphocytes % 6.2 %; Mean Corpuscular HGB Conc 29.4 g/dL (30.0-36.0); Mean Corpuscular Hemoglobin 23.3 pg (28.0-34.0); Mean Corpuscular Volume 79.3 fL (81-99); Mean Platelet Volume 10.2 fL (7.4-10.4); Monocytes # 1.5 10^3/uL (0.2-0.9); Neutrophils # 12.8 10^3/uL (1.8-7.7); Neutrophils % 82.9 %; Nucleated Red Blood Cells % 0 %; Platelet Count 304 10^3/cmm (130-400); Red Blood Count 3.43 10^6/uL (4.1-5.3); Red Cell Distribution Width 15.7 % (12.1-15.1); White Blood Count 15.4 10^3/uL (4.0-10.0)
--- NOTE | 2019-08-18 07:25 | PC.NURSE ---
the patietn is on the phone and just crying and crying. she cried thru getting vitals taken
[2019-08-18] MEDS: levoFLOXacin 750 mg Tablet PO (08:08)
[2019-08-18] MEDS: LORazepam 0.5 mg Tablet PO ×2 (08:08→15:58)
[2019-08-18] MEDS: morphine 4 mg/mL SDV 1 mL 2 MG IVP ×2 (09:18→15:44)
--- NOTE | 2019-08-18 14:59 | PM.PN ---
Subjective Subjective: Interval history: Postoperative day #2 from emergency right ureteral stenting for obstructive pyelonephritis. No evidence of progressive infectious concerns. Urine culture was growing greater than 100,000 colonies of gram-negative bacteria. Prior culture in April did show some resistance to ceftriaxone and sensitivity to Levaquin so yesterday Levaquin was added. Culture final came back today that showed sensitivity to ceftriaxone and resistant to Levaquin. The Levaquin was DC'd. This morning she was frustrated with having to stay in the hospital. A lot of anxiety. She had not slept well. Her whole body was sore she thought from shaking. Ativan was ordered and her Ambien dose at night was increased. Encouraged her to do her best to be willing to be safe over short-term gain of getting out of the hospital. Her white count this morning was better at 15 but still elevated. Recommended that she remain overnight again and hopefully go home tomorrow if her white count continues to improve. Medications: Reviewed: Yes Vitals/I&O/Wt Last Vital Signs Temp 98.2 F 08/18/19 11:04 Pulse 80 08/18/19 11:04 Resp 16 08/18/19 11:04 BP 104/67 08/18/19 11:04 Pulse Ox 93 08/18/19 11:04 08/17/19 08/18/19 08/18/19 22:59 06:59 14:59 Intake Total 1360 / 3080 982.5 / 4062.5 Output Total 200 / 650 800 / 1450 1000 / 1000 Balance 1160 / 2430 182.5 / 2612.5 -1000 / -1000 Physical Exam Const: COMMON NORMALS: no apparent distress, alert and well nourished GENERAL APPEARANCE: well kempt and well developed ORIENTATION/CONSCIOUSNESS: not confused Resp: COMMON NORMALS: normal respiratory effort EFFORT & INSPECTION: No labored and No actively coughing Neuro: COMMON NORMALS: no focal motor deficits SENSORIUM/ORIENTATION: Yes alert Psych: COMMON NORMALS: mental status grossly normal APPEARANCE: Yes grossly normal and Yes well kempt ATTITUDE: No calm MOOD & AFFECT: Yes anxious and Yes irritable Data : 08/18/19 05:14 08/17/19 05:05 Micro: Microbiology 08/16/19 13:46 Blood Culture - Preliminary Blood Coagulase negativ staphylococc 08/16/19 14:30 Urine Culture - Final Urine,Clean Catch Escherichia coli 08/16/19 13:49 Blood Culture - Preliminary Blood NEGATIVE TO DATE A&P Assessment and plan (1) Obstructive pyelonephritis: Clinically better white count improving, fairly flat temperature curve Status: Acute (2) Acute anxiety: Status: Acute Attestations Medical Necessity Statement*: Continue need for IV antibiotics based on obstructive pyelonephritis but still improving. 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
[2019-08-18] MEDS: cefTRIAXone 2,000 MG in sodium chloride 0.9% (plus) 50 ML 100 MG IV (17:10)
[2019-08-18] MEDS: docusate sodium 100 mg Capsule PO (17:10)
[2019-08-19] MEDS: ketorolac 30 mg/mL INJ 15 MG IVP ×2 (00:02→06:05)
[2019-08-19 00:05] VITALS: BP 119/79; PULSE 91; RESP 18; TEMP 37.2; O2SAT 99
[2019-08-19 04:00] VITALS: BP 123/79; PULSE 89; RESP 17; TEMP 36.8; O2SAT 97
[2019-08-19 05:21] LABS: Basophils % 0.4 %; Eosinophils # 0.1 10^3/uL (0.0-0.8); Eosinophils % 0.7 %; Hematocrit 26.8 % (37.0-47.0); Hemoglobin 8.1 g/dL (11.5-15.3); Lymphocytes # 1.6 10^3/uL (0.8-4.8); Mean Corpuscular HGB Conc 30.2 g/dL (30.0-36.0); Mean Corpuscular Hemoglobin 23.8 pg (28.0-34.0); Mean Corpuscular Volume 78.6 fL (81-99); Mean Platelet Volume 9.5 fL (7.4-10.4); Monocytes # 1.3 10^3/uL (0.2-0.9); Neutrophils # 8.1 10^3/uL (1.8-7.7); Neutrophils % 72.5 %; Nucleated Red Blood Cells % 0 %; Platelet Count 301 10^3/cmm (130-400); Red Blood Count 3.41 10^6/uL (4.1-5.3); Red Cell Distribution Width 15.9 % (12.1-15.1); White Blood Count 11.1 10^3/uL (4.0-10.0)
[2019-08-19] MEDS: docusate sodium 100 mg Capsule PO (07:34)
[2019-08-19] MEDS: acetaminophen 325 mg Tablet PO (07:34)
--- NOTE | 2019-08-19 07:57 | PM.DCS ---
Discharge Providers Date of Admission: 08/16/19 17:05 Date of Discharge: August 19, 2019 Attending Provider at Admission: Ethan Roy MD Attending Provider at Discharge: Ethan Roy MD Diagnoses at Discharge Discharge Diagnosis (1) Obstructive pyelonephritis: Status: Acute (2) Acute anxiety: Status: Acute Reason for Visit Reason for Visit: Reason For Visit: CYSTOSCOPY, RT RETROGRADE,STENT,POSS URETEROSCOPY Hospital Course Hospital Course: She was admitted through the emergency department with evidence of obstructive pyelonephritis in the absence of sepsis. Taken emergently to the operating room for stent placement which went very well. The ureter did show narrowing at the site of the previous stones but no evidence of extravasation and it was rather easy to pass a wire and the stent past that point. Initially her white count was 15 but on the day after the procedure had jumped to 23. She did remain afebrile and hemodynamically stable throughout her hospital stay. White count improved on ceftriaxone 2 g daily and day of discharge on 08/19/2019 her white count had decreased to 11 and again she continued to be afebrile with good vital signs. Her overall status improved. She did have a lot of trouble with anxiety during the hospital stay and that she wanted to go home desperately. This was managed with Ativan and sleep aid with Ambbrittanie. We discussed plans for stent removal including removal in roughly 2 weeks plus in my office versus reexamination with ureteroscopy prior to stent removal. We will make that decision on follow-up. Physical Exam Const: COMMON NORMALS: no apparent distress, alert and well nourished GENERAL APPEARANCE: well kempt and well developed ORIENTATION/CONSCIOUSNESS: not confused Resp: COMMON NORMALS: normal respiratory effort EFFORT & INSPECTION: No labored and No actively coughing Neuro: COMMON NORMALS: no focal motor deficits SENSORIUM/ORIENTATION: Yes alert Psych: COMMON NORMALS: mental status grossly normal APPEARANCE: Yes grossly normal and Yes well kempt ATTITUDE: Yes calm and Yes engaged Discharge Data Data Completed and Pending: Completed Studies During Hospitalization Category Date Time Status CT kidney stone 7 2380 Stat Cat Scan 08/16/19 13:29 Completed XR abdomen min 2V [id number] Routine Exams 08/16/19 17:22 Completed Pending at discharge Category Date Time Status Blood Culture Sta t Lab 08/16/19 13:49 Results Labs from last 24 hours 08/19/19 05:00 WBC 11.1 H RBC 3.41 L Hgb 8.1 L Hct 26.8 L MCV 78.6 L MCH 23.8 L MCHC 30.2 RDW 15.9 H Plt Count 301 MPV 9.5 Neut % (Auto) 72.5 Lymph % (Auto) 14.0 [place] % (Auto) 12.0 Eos % (Auto) 0.7 Baso % (Auto) 0.4 Neut # (Auto) 8.1 H Lymph # (Auto) 1.6 [place] # (Auto) 1.3 H Eos # (Auto) 0.1 Baso # (Auto) 0.0 Nucleated RBC % (a uto) 0 Nucleated RBCs # 0.0 Vitals: Last Vital Signs Temp 98.3 F 08/19/19 04:00 Pulse 89 08/19/19 04:00 Resp 17 08/19/19 04:00 BP 123/79 08/19/19 04:00 Pulse Ox 97 08/19/19 04:00 Discharge Plan Discharge Patient Disposition: Home, Self-Care Condition: Stable Prescriptions: New cefuroxime axetil 500 mg tablet 500 mg PO BID 20 Days Qty: 40 RF: 1 [place] 5-325 mg tablet 1 tab PO Q8H Qty: 10 RF: 0 Continued levonorgestrel-ethinyl estrad [Lutera (28)] 0.1-20 mg-mcg Tablet 1 tab PO DAILY RF: 0 Discharge Orders: Discharge Order (Routine); Ordered 08/19/19 Ordered By: Ethan Roy Referrals: Ethan Roy MD [Physician] - 2 weeks ([facility] first. Possible but not likely stent removal in clinic) Discharge Diet: Usual diet Discharge Activity: Resume usual activity Activity Restrictions/Additional Instructions: 1. Follow-up in roughly 2 weeks. 2. Take the new prescription which is similar to the IV antibiotics which you have used in the hospital. Call for any questions or concerns about that. 3. We will get a follow-up x-ray prior to your next visit. 4. We will make a decision at that point whether to remove the stent then or consider removing it in the operating room and reexamined the ureter status at that time. More time is good when it comes to the stent healing the ureter. Discharge Attestations Time Spent in Discharge Care*: greater than 30 min Quality Metrics Clinical Quality Measures During this hospital stay, did patient experience: None Coding Level of Care Code Acute Steel Chipper for Chg Fwd Exam Expanded Problem Focused Diagnoses Obstructive pyelonephritis N11.1 Acute anxiety F41.9
[2019-08-19 08:00] VITALS: BP 120/67; PULSE 79; RESP 20; TEMP 36.7; O2SAT 97
--- NOTE | 2019-08-19 08:36 | PC.NURSE ---
discharge instructions given to patient. patient verbalized understanding of instructions. IV removed and covered with coban. Patient called family for ride home. patient's belongings bagged up and patient dressed.
[2019-08-19 09:00] VITALS: BP 120/67; PULSE 79; RESP 20; TEMP 36.7; O2SAT 97
== END 2019-08-19 09:01 | disposition home or self-care (01) | DRG 660 ==
LOC: ER 15:20 → OPS 15:20 → MEDSURG 17:21
PROVIDERS: Emergency Medicine; Admitting Provider Urology; Emergency Provider Family Medicine; Visit Provider Urology
PROC: 0TJB8ZZ Inspection of Bladder, Via Natural or Artificial Opening Endoscopic (ICD-10-PCS; CPT 52000; principal; 2019-08-16 16:20)
PROC: 0T768DZ Dilation of Right Ureter with Intraluminal Device, Via Natural or Artificial Opening Endoscopic (ICD-10-PCS; CPT 74420; 2019-08-16 16:20)
PROC: 0T768DZ Dilation of Right Ureter with Intraluminal Device, Via Natural or Artificial Opening Endoscopic (ICD-10-PCS; CPT 50605; 2019-08-16 16:20)
DX: N11.1 Chronic obstructive pyelonephritis (principal); N13.1 Hydronephrosis with ureteral stricture, not elsewhere classified; N39.0 Urinary tract infection, site not specified; Z87.891 Personal history of nicotine dependence; F41.9 Anxiety disorder, unspecified
CPT/HCPCS: 12345; 36415; 74019; 74176; 80048; 80053; 81001; 81025; 83605; 85025; 87040; 87077; 87086; 87186; 87205; 96375; 99283; A9270; J0330; J0696; J1170; J1885; J2001; J2250; J2270; J2405; J2704; J3010; J3480; J3490; J7030

== ENCOUNTER 2019-08-16 13:21 | Emergency (ER) | payer MEDICAID, SELFPAY | END 2019-08-16 16:18 | disposition admitted as inpatient to this hospital (09) | LOC: ER 08-22 12:33 | PROVIDERS: Emergency Provider Family Medicine | DX: R10.9 Unspecified abdominal pain (principal); Z87.442 Personal history of urinary calculi; Z87.891 Personal history of nicotine dependence | CPT/HCPCS: 12345; 36415; 74176; 80053; 81001; 81025; 83605; 85025; 87040; 87077; 87086; 87186; 87205; 96365; 96367; 96375; 96376; 99283; 99285; A9270; J0330; J0696; J1170; J2270; J2405; J2704; J3480; J3490; J7030 ==

== ENCOUNTER 2019-09-04 09:56 | Outpatient (CLI) | payer MEDICAID, SELFPAY ==
--- NOTE | 2019-09-04 09:30 | XRR_ITS ---
PROCEDURE INFORMATION: Exam: XR Abdomen, 1 View Exam date and time: 09/04/2019 10:04 AM Age: 28 years old Clinical indication: Condition or disease; Kidney or ureter condition; Calculus (stone) in kidney; Prior surgery; Surgery date: 1-6 months; Surgery type: Stent; Additional info: Kidney stone f/u TECHNIQUE: Imaging protocol: XR of the abdomen. Views: Frontal supine view of the abdomen. 1 View. COMPARISON: OT XR abdomen min 2V [id number] 08/16/2019 4:46 PM FINDINGS: Gastrointestinal tract: bowel gas pattern is nonspecific. Air filled large bowel including distal rectal gas. Moderate amount stool throughout the large bowel. Vasculature: Double-J ureteric stent on the right. Small calcification adjacent to the stent distally of 2-3 mm. Bones/joints: Unremarkable. XR/XR KUB 02004 IMPRESSION: 1. Double-J ureteric stent on the right. Small calcification adjacent to the stent distally of 2-3 mm. 2. Bowel gas pattern is nonspecific. Air filled large bowel including distal rectal gas. 3. Moderate amount stool throughout the large bowel.
== END 2019-09-04 09:57 | disposition home or self-care (01) ==
LOC: RAD 09:59
PROVIDERS: Visit Provider Nurse Practitioner Family
DX: N20.0 Calculus of kidney (principal); Z96.0 Presence of urogenital implants
CPT/HCPCS: 74018; 81001

== ENCOUNTER → 2019-10-03 09:16 | Outpatient (BNVA) | payer MEDICAID, SELFPAY | PROVIDERS: Visit Provider Urology | DX: N20.1 Calculus of ureter (principal); N13.5 Crossing vessel and stricture of ureter without hydronephrosis; N20.0 Calculus of kidney | CPT/HCPCS: 81001 ==

== ENCOUNTER 2019-10-14 08:24 | Outpatient (CLI) | payer MEDICAID, SELFPAY ==
--- NOTE | 2019-10-14 08:00 | XRR_ITS ---
PROCEDURE INFORMATION: Exam: XR Abdomen, 1 View Exam date and time: 10/14/2019 8:44 AM Age: 28 years old Clinical indication: Condition or disease; Kidney or ureter condition; Calculus (stone) in ureter; Additional info: Stones TECHNIQUE: Imaging protocol: XR of the abdomen. Views: Frontal supine view of the abdomen. 1 View. COMPARISON: CR XR KUB 22024 09/04/2019 10:23 AM FINDINGS: Gastrointestinal tract: Normal. No bowel dilation. Organs: There is an indwelling right-sided nephroureteral stent. No radiopaque calculi are visualized. Bones/joints: Unremarkable. XR/XR KUB 51175 IMPRESSION: Indwelling right nephroureteral stent. Nonspecific bowel gas pattern.
== END 2019-10-14 08:25 | disposition home or self-care (01) ==
LOC: RAD 08:29
PROVIDERS: Visit Provider Urology
DX: N20.0 Calculus of kidney (principal); N13.30 Unspecified hydronephrosis; Z96.0 Presence of urogenital implants
CPT/HCPCS: 74018; 81001

== ENCOUNTER → 2020-01-14 16:09 | Outpatient (BNVA) | payer MEDICAID, SELFPAY | PROVIDERS: Visit Provider Nurse Practitioner | DX: Z20.2 Contact with and (suspected) exposure to infections with a predominantly sexual mode of transmission (principal) | CPT/HCPCS: 87086; 87491; 87591; 87661 ==

== ENCOUNTER → 2020-02-02 10:58 | Outpatient (BNVA) | payer MEDICAID, SELFPAY | PROVIDERS: Visit Provider Nurse Practitioner Family | DX: Z11.59 Encounter for screening for other viral diseases (principal) | CPT/HCPCS: 87635 ==

== ENCOUNTER 2020-02-18 08:23 | Outpatient (CLI) | payer MEDICAID, SELFPAY ==
--- NOTE | 2020-02-18 08:30 | XR_ITS ---
WS: [id number] XR KUB [id number] REASON FOR EXAM: URETERAL OBSTRUCTION FINDINGS: Compared to the previous abdominal examination of 10/14/2019, the right ureteral stent has been remov ed. A 3 mm calculus in the region of the midpole the right kidney is again identified unchanged compared to the previous study. This calculus was also seen on the a previous CT scan of 08/16/2019. The right lower pole calculus identified on previous CT scan of 08/16/2019 is not readily identifiabl e. A small calculus seen along the margin of the lower portion of the right ureteral stent approximately 3 sideholes from the pigtail is no longer identifiable. XR/XR KUB 69416 IMPRESSION: Right mid renal calculus again identified. No other renal calculi identified as above.
--- NOTE | 2020-02-18 13:30 | US_ITS ---
WS: [id number] ULTRASOUND RENAL TECHNIQUE: Ultrasound examination of both kidneys. CLINICAL INFORMATION: Stones COMPARISON: None. FINDINGS: RIGHT: Nonobstructing 4.5 mm calculus right kidney. Right kidney is normal in size and appearance. Echogenicity: Normal. Cortical thickness: 1.2 cm; Normal. Hydronephrosis: None. Perinephric fluid: None. Right kidney measures: 10.0 cm x 4.9 cm x 5.3 cm. LEFT: Left kidney is normal in size and appearance. Echogenicity: Normal. Cortical thickness: 1.9 cm; Normal. Hydronephrosis: None. Perinephric fluid: None. Left kidney measures: 10.5 cm x 4.5 cm x 4.2 cm. Normal visualized aorta. Dependent debris within the bladder. US/US renal BI* [id number] IMPRESSION: 1. Normal renal ultrasound. No hydronephrosis. 2. Nonobstructing 4.5 mm calculus right kidney 3. Small amount of dependent debris within the bladder.
== END 2020-02-18 08:24 | disposition home or self-care (01) ==
LOC: RAD 08:26
PROVIDERS: Visit Provider Urology
DX: N20.0 Calculus of kidney (principal)
CPT/HCPCS: 74018; 76770

== ENCOUNTER 2020-02-18 12:58 | Outpatient (CLI) | payer MEDICAID, SELFPAY | END 2020-02-18 12:59 | disposition home or self-care (01) | PROVIDERS: Visit Provider Urology | DX: N13.5 Crossing vessel and stricture of ureter without hydronephrosis (principal) | CPT/HCPCS: 81003 ==

== ENCOUNTER → 2020-03-31 13:02 | Outpatient (BNVA) | payer MEDICAID, SELFPAY | PROVIDERS: Visit Provider Nurse Practitioner Family | DX: Z20.828 Contact with and (suspected) exposure to other viral communicable diseases (principal) | CPT/HCPCS: 87635 ==

== ENCOUNTER → 2020-05-28 10:13 | Outpatient (BNVA) | payer MEDICAID, SELFPAY | PROVIDERS: Visit Provider Nurse Practitioner | DX: J02.9 Acute pharyngitis, unspecified (principal); J01.90 Acute sinusitis, unspecified | CPT/HCPCS: 87071; 87880 ==

== ENCOUNTER 2020-08-02 10:16 | Emergency (ER) | payer MEDICAID, SELFPAY ==
[2020-08-02 10:31] VITALS: BP 131/85; PULSE 67; RESP 16; TEMP 36.7; O2SAT 100; BMI 27.4
--- NOTE | 2020-08-02 10:40 | ED_ITS ---
HPI - Extremity Problem General: Chief complaint: Extremity Injury, Upper Stated complaint: R WRIST INJURY Time Seen by Provider: 08/02/20 10:22 History of Present Illness: HPI Narrative: Patient is a 29-year-old female comes to the ED with right wrist injury and pain. Patient says last night she was rollerskating and she fell landing on her right arm. She is now having pain in her right wrist and some wrist movements cause pain and also gripping with hand causes some pain as well. She describes her right wrist pain is throbbing and she rates it a 7 out of 10. Patient says she been icing her right wrist to help with swelling and pain. Associated symptoms: Deny chest pain, fever(s) or rash Review of Systems Const: Denies: fever(s), chills or fatigue Eyes: Denies: change in vision or eye discomfort ENMT: Denies: throat pain, odynophagia, nasal discharge or nasal congestion Card: Denies: chest pain, palpitations, edema, swelling of feet/ankles, dyspnea on exertion or orthopnea Resp: Denies: dyspnea, productive cough or non-productive cough GI: Denies: abdominal pain, nausea, vomiting, diarrhea, constipation or hematochezia : Denies: flank pain, dysuria or hematuria Musc: Reports: extremity pain (right wrist) and extremity swelling (right wrist); Denies: neck pain or back pain Skin/Breast: Denies: rash or new lesions Neuro: Denies: headache(s), numbness in extremities or weakness in extremities [facility] ED PFSH: Medical History Kidney stones Obstructive pyelonephritis Surgical History History of ureter stent Family History Mother Cancer heart Father Cancer breast Social History Smoking and tobacco status: former smoker Alcohol intake: never Marital status: Single Current occupational status: unemployed History of recent travel: No Female Reproductive History: Date of last menstrual period: 07/19/20 Physical Exam Const: COMMON NORMALS: no acute distress, patient oriented x3, healthy appearing and alert GENERAL APPEARANCE: cooperative and comfortable HENMT: COMMON NORMALS: normocephalic HEAD & SCALP: normocephalic MOUTH: Normal oral and palatal mucosa present THROAT: posterior oropharynx normal and uvula midline Neck/C-Spine: COMMON NORMALS: supple GENERAL: Yes normal visual inspection Resp: COMMON NORMALS: normal respiratory effort, No retractions, No use of accessory muscles and clear to auscultation bilaterally AUSCULTATION: clear to auscultation bilaterally Cardio: COMMON NORMALS: regular rate, regular rhythm, S1 normal heart sound present, S2 normal heart sound present, No gallops present (Cardio), No clicks present (Cardio), No murmurs present (Cardio) and Peripheral pulses 2+ throughout RATE: regular rate RHYTHM: regular rhythm HEART SOUNDS: S1 normal heart sound present and S2 normal heart sound present PERIPHERAL PULSES: Peripheral pulses 2+ throughout GI: COMMON NORMALS: Normal to inspection, nondistended, normoactive bowel sounds present, Soft to palpation, non-tender and no masses PALPATION: Yes Soft to palpation : COMMON NORMALS: Yes no CVA tenderness BLADDER/KIDNEY EXAM: Yes no CVA tenderness Back/Pelvis: COMMON NORMALS: no CVA tenderness Extremity: RIGHT UPPER EXTREMITY: Yes wrist Right wrist: Yes inspection (No visible deformity or ecchymosis seen. Mild swelling around wrist.), Yes palpation (Tender over radial aspect of wrist), Yes ROM (Limited due to pain) and Yes neurovascular exam (Intact, cap refill normal and radial pulse 2+) Neuro: COMMON NORMALS: patient oriented x3 and moves all extremities SENSORIUM/ORIENTATION: Yes alert Skin: GENERAL SKIN EXAM: dry skin Course Vital Signs: Vital signs: Vital Signs Temperature 98.1 F 08/02/20 10:31 Pulse Rate 67 08/02/20 10:31 Respiratory Rate 16 08/02/20 10:31 Blood Pressure 131/85 08/02/20 10:31 Pulse Oximetry 100 08/02/20 10:31 MDM - Extremity (Nontraumatic) MDM Narrative: Medical decision making narrative: Patient is a 29-year-old female comes to the ED with right wrist pain. Patient had a fall while rollerskating last night. On exam patient's right wrist has no visible deformities or ecchymosis seen. She is neurovascular intact does have some limited range of motion in her wrist due to pain and tender over radial aspect of wrist. X-ray of right wrist showed no acute fractures or findings. Patient was diagnosed with a right wrist sprain and strain and sent home home with a universal wrist brace. She was told to follow-up with her PCP in 7 to 10 days for reevaluation. Apply cold pack on wrist to help with symptoms and to take [id number] ibuprofen or Tylenol for pain. Return to ED precautions given. Patient understood and agreed with plan. Imaging Data^: Xray Ortho: Attestation: I personally reviewed and interpreted this imaging study as follows: Radiologist's impression: [address] [address] XRay Report Signed Patient: Kyara Pike Unit #: [id number] : 1990 Age/Sex: 29 / F ADM Date: 08/02/20 Loc: ER Room/Bed: Attending Dr: Ordering Provider/Ordering MD: Souleymane Yip Date of Service: 08/02/20 Procedure(s): XR wrist RT min 3V* 20507 Accession Number(s): [id number] Report Number: [id number] PROCEDURE INFORMATION: Exam: XR Right Wrist Exam date and time: 08/02/2020 11:00 AM Age: 29 years old Clinical indication: Injury or trauma; Fall; Blunt trauma (contusions or hematomas); Wrist; Right; Injury date: 08/01/20; Additional info: Injury to left wrist TECHNIQUE: Imaging protocol: XR Right wrist. Views: 3 or more views. COMPARISON: No relevant prior studies available. FINDINGS: Bones/joints: Normal. Soft tissues: Normal. XR/XR wrist RT min 3V* [id number] IMPRESSION: No acute findings. Dictated By: Keith Parks Signed By: Keith Parks Signed Date/Time: 08/02/20 110 DD/ 1107 Discharge Plan Discharge Patient Disposition: Home Clinical Impression: Sprain and strain of wrist Condition: Stable Prescriptions: No Action azithromycin 250 mg tablet See Rx Instructions PO .COMPLEX Qty: 6 RF: 0 Discharge Orders: Discharge ED (Routine); Ordered 08/02/20 Ordered By: Souleymane Yip Discharge Diet: Regular Discharge Activity: Limit activity as instructed Patient Instructions: Wrist Sprain (ED) Activity Restrictions/Additional Instructions: Follow-up with medical provider as directed in 7 to 10 days for reevaluation. Apply cold pack rest and wear wrist splint for couple days to allow for healing. Take [id number] Tylenol or ibuprofen per bottle instructions for pain. Return to the ER or your medical provider if condition worsens. Please read and understand discharge instructions. If any questions, please ask. Coding Level of Care Code ED Sow [employer] Technician for Annie Fwd Exam Comprehensive
[2020-08-02] MEDS: ketorolac 60 mg/2 mL INJ IM (11:45)
== END 2020-08-02 12:01 | disposition home or self-care (01) ==
PROVIDERS: Emergency Provider Physician Assistant
DX: S63.501A Unspecified sprain of right wrist, initial encounter (principal); S66.911A Strain of unspecified muscle, fascia and tendon at wrist and hand level, right hand, initial encounter; Z87.891 Personal history of nicotine dependence; W19.XXXA Unspecified fall, initial encounter; Y93.51 Activity, roller skating (inline) and skateboarding
CPT/HCPCS: 73110; 96372; 99283; J1885

== ENCOUNTER 2020-08-17 08:06 | Outpatient (CLI) | payer MEDICAID, SELFPAY ==
--- NOTE | 2020-08-17 07:45 | XRR_ITS ---
PROCEDURE INFORMATION: Exam: XR Abdomen Exam date and time: 08/17/2020 8:25 AM Age: 29 years old Clinical indication: Condition or disease; Kidney or ureter condition; Calculus (stone) in kidney; Additional info: Kidney stone TECHNIQUE: Imaging protocol: XR of the abdomen. Views: Frontal supine view of the abdomen. 1 View. COMPARISON: [place] XR KUB [id number] 02/18/2020 8:37 AM FINDINGS: Gastrointestinal tract: Normal. No bowel dilation. Organs: A stable 3 mm calcification projects on the midportion of the right kidney. No calcifications are seen in the projection of the ureters. Bones/joints: Unremarkable. XR/XR KUB [id number] IMPRESSION: 1. Stable 3 mm calcification projects on the right kidney. 2. No acute abnormality.
== END 2020-08-17 08:07 | disposition home or self-care (01) ==
LOC: RAD 08:10
PROVIDERS: Visit Provider Urology
DX: N20.0 Calculus of kidney (principal)
CPT/HCPCS: 74018; 81003

== ENCOUNTER 2020-10-21 06:42 | Emergency (ER) | payer MEDICAID, SELFPAY ==
[2020-10-21 06:46] VITALS: BP 122/76; PULSE 90; RESP 18; TEMP 36.9; O2SAT 98; BMI 26.6
--- NOTE | 2020-10-21 06:48 | W.ED.SKABFB ---
HPI - Skin/Abscess/Foreign Bdy General: Chief complaint: Skin/Abscess/Foreign Body Stated complaint: Reaction on R arm, Both inner thighs Time Seen by Provider: 10/21/20 06:48 History of Present Illness: HPI narrative: 29-year-old female complains of rash on her right arm as well as inner thighs bilaterally. Patient had some poison girma a week or 2 ago was treated with a steroid injection and some topical medications. She now again has a small patch on the inside of her right arm with a vesicular-like rash, in the popliteal fossa bilaterally she has some mild raised papules with no vesicular aspect to it there is some mild irritation of the corner of her eye as well to no vesicular changes. She denies any difficulty breathing. MD complaint: rash Location: RUE, LLE and RLE Severity: mild Associated symptoms: Deny chills, fever(s), nausea or vomiting Review of Systems Const: Denies: fever(s), chills, body aches, change in appetite, fatigue or malaise ENMT: Denies: throat pain, ear or mastoid pain, nasal discharge or nasal congestion Card: Denies: chest pain, edema, dyspnea on exertion or orthopnea Resp: Denies: dyspnea, productive cough or non-productive cough GI: Denies: abdominal pain, nausea, vomiting, diarrhea or constipation Skin/Breast: Reports: rash (As described in HPI) PFS ED PFSH: Medical History Kidney stones Obstructive pyelonephritis Surgical History History of ureter stent Family History Mother Cancer heart Father Cancer breast Social History Smoking and tobacco status: former smoker Alcohol intake: never Marital status: Single Current occupational status: unemployed History of recent travel: No Female Reproductive History: Date of last menstrual period: 07/19/20 Physical Exam Const: COMMON NORMALS: no acute distress GENERAL APPEARANCE: cooperative and comfortable ORIENTATION/CONSCIOUSNESS: Yes awake, Yes oriented to person, Yes oriented to place and Yes oriented to time HENMT: COMMON NORMALS: normocephalic, atraumatic, hearing grossly normal bilaterally and external ears normal HEAD & SCALP: normocephalic and atraumatic EXTERNAL EAR: Yes external ears normal Eye: COMMON NORMALS: Equal, round and reactive pupils present, EOMs intact bilaterally, conjunctivae normal and no scleral icterus CONJUNCTIVA: Yes conjunctivae normal PUPIL: Yes Equal, round and reactive pupils present Neck/C-Spine: COMMON NORMALS: no JVD Resp: COMMON NORMALS: normal respiratory effort, No retractions, No use of accessory muscles and clear to auscultation bilaterally AUSCULTATION: clear to auscultation bilaterally Cardio: COMMON NORMALS: no JVD, regular rate, regular rhythm and No murmurs present (Cardio) RATE: regular rate RHYTHM: regular rhythm Extremity: COMMON NORMALS: normal to inspection, capillary refill normal, no clubbing, cyanosis or edema, no calf tenderness and no pedal edema Neuro: SENSORIUM/ORIENTATION: Yes oriented to person, Yes oriented to place and Yes oriented to time Skin: NARRATIVE SKIN EXAM: Small area of vesicular rash just a centimeter irregular. There is 3 vesicular type lesions there does not seem to follow dermatomal pattern. There is no sign of infection. The popliteal fossa bilaterally there is some raised excoriated areas with no evidence of vesicular changes. Course Vital Signs: Vital signs: Vital Signs Temperature 98.4 F 10/21/20 06:46 Pulse Rate 90 10/21/20 06:46 Respiratory Rate 18 10/21/20 06:46 Blood Pressure 122/76 10/21/20 06:46 Pulse Oximetry 98 10/21/20 06:46 MDM - Skin/Abscess/Foreign Bdy MDM Narrative: Medical decision making narrative: Please inform does appear to be a small area likely a bruise dermatitis. The other areas the popliteal fossa does not appear to be of that today here we will have her use topical triamcinolone to each area follow-up as needed Discharge Plan Discharge Patient Disposition: Home Clinical Impression: Rhus dermatitis, Dermatitis Condition: Stable Prescriptions: New triamcinolone acetonide 0.5 % cream 1 applic topical BID Qty: 15 RF: 0 Discharge Orders: Discharge ED (Routine); Ordered 10/21/20 Ordered By: Brian Rocha Patient Instructions: Opioid Safety Coding Level of Care Code ED Patient Care Nursing Assistant for Chg Fwd Exam Detailed
== END 2020-10-21 07:29 | disposition home or self-care (01) ==
PROVIDERS: Emergency Provider Family Medicine
DX: L23.7 Allergic contact dermatitis due to plants, except food (principal); Z87.891 Personal history of nicotine dependence
CPT/HCPCS: 99282

== ENCOUNTER → 2020-11-18 12:12 | Outpatient (BNVA) | payer MEDICAID, SELFPAY | PROVIDERS: Visit Provider Registered Nurse Neonatal Intensive Care | DX: N39.0 Urinary tract infection, site not specified (principal); N20.0 Calculus of kidney | CPT/HCPCS: 81000 ==

== ENCOUNTER 2020-11-19 11:16 | Emergency (ER) | payer MEDICAID, SELFPAY ==
[2020-11-19 12:18] VITALS: BP 111/72; PULSE 64; RESP 18; TEMP 36.6; O2SAT 98; BMI 26.6
== END 2020-11-19 13:45 | disposition left against medical advice (07) ==
PROVIDERS: Emergency Provider Family Medicine
DX: Z53.21 Procedure and treatment not carried out due to patient leaving prior to being seen by health care provider (principal)
CPT/HCPCS: 99282

== ENCOUNTER → 2021-03-07 13:57 | Outpatient (BNVA) | payer MEDICAID, SELFPAY | PROVIDERS: Visit Provider Nurse Practitioner Family | DX: Z20.822 Contact with and (suspected) exposure to COVID-19 (principal) | CPT/HCPCS: 87635 ==